=== PATIENT | female | born 1980 | race Caucasian/White ===

== ENCOUNTER 2017-01-05 11:03 | Inpatient (IN) ==
[2017-01-05] MEDS ORDERED: 0.9 % Sodium Chloride 1,000 ML IVC ONE ×3 (11:20→14:01)
[2017-01-05] MEDS ORDERED: Ipratropium/Albuterol Neb 3 ML IH ONE (11:20)
[2017-01-05] MEDS ORDERED: Benzonatate 100 MG CAPSULE PO STA (11:23)
[2017-01-05] MEDS ORDERED: Ondansetron 4 MG/2 ML VIAL IVP ONE (11:59)
[2017-01-05 12:00] LABS: Basophils # 0.1 K/mcL (0.0-0.2); Basophils % 0.7 %; Eosinophils # 0.2 K/mcL (0.0-0.6); Eosinophils % 2.7 %; Hematocrit 42.1 % (35.3-44.9); Hemoglobin 15.4 g/dL (11.5-15.4); Immature Granulocytes % 0.3 % (0-4); Immature Platelets 5.6 % (1.1-6.1); Lymphocytes # 2.6 K/mcL (0.6-4.6); Lymphocytes % 35.9 %; Mean Corpuscular HGB Conc 36.6 g/dL (31.6-35.5); Mean Corpuscular Hemoglobin 28.9 pg (28.0-33.3); Mean Corpuscular Volume 79.1 fL (83.0-100.0); Mean Platelet Volume 10.7 fL (9.4-12.4); Monocytes # 0.3 K/mcL (0.0-1.3); Monocytes % 3.9 %; Platelet Count 342 K/mcL (140-400); Red Blood Count 5.32 M/mcL (3.82-4.97); Red Cell Distribution Width 12.5 % (11.5-14.5); Segmented Neutrophils % 56.5 %
[2017-01-05 12:13] LABS: Calcium 9.3 mg/dL (8.6-10.8); Potassium 3.8 mEq/L (3.5-4.5)
--- NOTE | 2017-01-05 12:16 | Emergency Department Note ---
Disposition Clinical Impression: DKA (diabetic ketoacidoses) Disposition: Admitted As Inpatient Condition: Fair Time of Disposition: 15:27 General Adult HPI - General Chief complaint: ED Upper Respiratory Infection Stated complaint: cough/congestion Time Seen by Provider: 01/05/17 11:09 Source: patient Mode of arrival: ambulatory Limitations: no limitations Nursing Notes Reviewed: Yes Vital Signs Reviewed: Yes - History of Present Illness HPI Narrative: Impression presenting to the ED with shortness breath and chest pain. Patient has had gradually increasing shortness of breath and exertional dyspnea over the last week. Also associated with nausea, fatigue, cough/congestion. Has a history of pneumonia requiring admission and intubation according the patient. States that she does not have a history of asthma or COPD but does smoke and has a nebulizer at home. This has not been helping. States the last day or 2. She has had some substernal chest pain that sharp and pleuritic. Also having increasing exertional dyspnea. No DVT, PE, malignancy history. No exogenous estrogen use, recent travel or surgeries. States she has felt like this previously. SHe has been subjectively febrile at home. Pain Scale: 7 - Related Data Allergies Allergy/AdvReac Type Severity Reaction Status Date / Time No Known Allergies Allergy Verified 01/05/17 11:21 All systems ED: reviewed and negative except as stated. Constitutional: Reports: fever Eyes: Denies: vision change Cardiovascular: Reports: chest pain, dyspnea on exertion, orthopnea Respiratory: Reports: cough, dyspnea Gastrointestinal: Reports: nausea Musculoskeletal: Denies: back pain Neurological: Denies: headache Endocrine: Reports: fatigue Past Medical History - Past Medical History Attestation: Yes The following information was validated with the patient. Source: patient Medical history: Reports: diabetes Psychiatric history: Reports: anxiety, depression - Social History Smoking Status: Current every day smoker Smokeless Tobacco Status: No Alcohol use: Reports: none Drug use: Reports: none Physical Exam - General Limitations: no limitations General appearance: alert, anxious - Head Head exam: atraumatic, normocephalic, normal inspection - Eye Eye exam: Present: normal appearance, PERRL, EOMI - ENT ENT exam: normal exam, normal oropharynx, mucous membranes moist - Neck Neck exam: Present: normal inspection, full ROM, trachea midline - Chest Chest inspection: Present: normal inspection, symmetric chest wall rise - Respiratory Respiratory exam: Present: wheezes. Absent: normal lung sounds bilaterally, respiratory distress, accessory muscle use - Cardiovascular Cardiovascular exam: Present: tachycardia, normal heart sounds - Abdominal Exam Abdominal exam: Present: soft, Non-Tender. Absent: tenderness, distention, guarding, rebound, rigidity - Extremities Exam Extremities exam: Present: normal inspection, full ROM, normal capillary refill. Absent: tenderness, pedal edema - Neurological Exam Neurological exam: Present: alert, oriented X3 - Psychiatric Psychiatric exam: Present: normal affect, normal mood - Skin Skin exam: Present: warm, dry, intact, normal color Course Course Narrative: Pneumonia versus PE. We will check a d-dimer. Labs, cultures, chest x-ray. - Reevaluation(s) Reevaluation #1: Patient hyperglycemic with an anion gap of 13 We ordered serum ketones and a VBG however, after 2 hours lab informed us that the order never popped up on their screening despite us, asking them to draw it. It was ordered again, and 30 minutes later, the labs are still not gone, so asked again for these be ordered and they were ordered. Serum ketones slightly elevated. The VBG did not show overt acidosis, although her CO2 is low. We will admit to the hospitalist service for DKA. Do not think she needs ICU at this time. Glucose is trending down after fluids. Replace her potassium with 40 by mouth and 20 IV. Vital Signs Temperature 98.2 F 01/05/17 11:03 Pulse Rate 114 01/05/17 11:03 Respiratory Rate 22 01/05/17 11:03 Blood Pressure 148/71 01/05/17 11:03 O2 Sat by Pulse Oximetry 97 01/05/17 11:03 Temperature 98.0 F 01/06/17 07:17 Pulse Rate 78 01/06/17 08:37 Respiratory Rate 18 01/06/17 07:17 Blood Pressure 118/76 01/06/17 07:17 O2 Sat by Pulse Oximetry 98 01/06/17 07:24 Oxygen Delivery Oxygen Delivery Room Air Medical Decision Making - Medical Records Medical records reviewed: Yes I reviewed the patient's medical records. - Lab Data Lab results reviewed: Yes I reviewed the patient's lab results. Result diagrams: 01/06/17 03:14 01/06/17 03:14 Lab Results 10/29/17 10/29/17 10/29/17 Range/Units 08:25 11:39 11:39 WBC 7.1 (4.3-11.1) K/mcL RBC 5.32 H (3.82-4.97) M/mcL Hgb 15.4 (11.5-15.4) g/dL Hct 42.1 (35.3-44.9) % MCV 79.1 L (83.0-100.0) fL MCH 28.9 (28.0-33.3) pg MCHC 36.6 H (31.6-35.5) g/dL RDW 12.5 (11.5-14.5) % Plt Count 342 (140-400) K/mcL MPV 10.7 (9.4-12.4) fL Immature Gran % 0.3 (0-4) % Seg Neutrophils % 56.5 % Lymphocytes % 35.9 % Monocytes % 3.9 % Eosinophils % 2.7 % Basophils % 0.7 % Neutrophils # 4.0 (1.6-8.9) K/mcL Lymphocytes # 2.6 (0.6-4.6) K/mcL Monocytes # 0.3 (0.0-1.3) K/mcL Eosinophils # 0.2 (0.0-0.6) K/mcL Basophils # 0.1 (0.0-0.2) K/mcL Immature Plt Fraction 5.6 (1.1-6.1) % D-Dimer 406 (0-500) ng/mLFEU VBG pH (7.32-7.42) pH Units VBG pCO2 (41-51) mmHg VBG pO2 (25-50) mmHg VBG HCO3 (21-27) mEq/L Sodium (136-145) mEq/L Potassium (3.5-4.5) mEq/L Chloride (98-109) mEq/L Carbon Dioxide (19-29) mEq/L BUN (7-20) mg/dL Creatinine (0.57-1.11) mg/dL Est GFR ( Amer) (> 60) Est GFR (Non-Af Amer) (> 60) BUN/Creatinine Ratio (6-26) Glucose (70-99) mg/dL POC Glucose (58-89) Calculated Osmolality (280-300) Lactic Acid (0.5-2.2) mmol/L Calcium (8.6-10.8) mg/dL Troponin I (0-0.03) ng/mL Beta-Hydroxybutyric Acd (0.02-0.27) mmol/L Urine Color (Yellow) Urine Clarity (Clear) Urine pH (5.0-8.0) pH Units Ur Specific [place] (1.010-1.025) Urine Protein (Neg-Trace) mg/dL Urine Glucose (UA) (Normal) mg/dL Urine Ketones (Negative) mg/dL Urine Blood (Negative) Urine Nitrite (Negative) Urine Bilirubin (Negative) Urine Urobilinogen (Normal) mg/dL Ur Leukocyte Esterase (Negative) Urine Microscopic RBC (0-3) per hpf Urine Microscopic WBC (0-3) per hpf Ur Squamous Epith Cells (None-Few) per lpf Urine Bacteria (None-Few) per hpf Ur Culture Indicated? (NO) Specimen Rejected Miscellaneous 01/05/17 01/05/17 01/05/17 Range/Units 11:39 11:39 11:39 WBC (4.3-11.1) K/mcL RBC (3.82-4.97) M/mcL Hgb (11.5-15.4) g/dL Hct (35.3-44.9) % MCV (83.0-100.0) fL MCH (28.0-33.3) pg MCHC (31.6-35.5) g/dL RDW (11.5-14.5) % Plt Count (140-400) K/mcL MPV (9.4-12.4) fL Immature Gran % (0-4) % Seg Neutrophils % % Lymphocytes % % Monocytes % % Eosinophils % % Basophils % % Neutrophils # (1.6-8.9) K/mcL Lymphocytes # (0.6-4.6) K/mcL Monocytes # (0.0-1.3) K/mcL Eosinophils # (0.0-0.6) K/mcL Basophils # (0.0-0.2) K/mcL Immature Plt Fraction (1.1-6.1) % D-Dimer (0-500) ng/mLFEU VBG pH (7.32-7.42) pH Units VBG pCO2 (41-51) mmHg VBG pO2 (25-50) mmHg VBG HCO3 (21-27) mEq/L Sodium 126 L (136-145) mEq/L Potassium 3.8 (3.5-4.5) mEq/L Chloride 98 (98-109) mEq/L Carbon Dioxide 15 L (19-29) mEq/L BUN 9 (7-20) mg/dL Creatinine 1.38 H (0.57-1.11) mg/dL Est GFR ( Amer) 52 L (> 60) Est GFR (Non-Af Amer) 43 L (> 60) BUN/Creatinine Ratio 7 (6-26) Glucose 780 H* (70-99) mg/dL POC Glucose (58-89) Calculated Osmolality 299 (280-300) Lactic Acid 2.8 H (0.5-2.2) mmol/L Calcium 9.3 (8.6-10.8) mg/dL Troponin I 0.00 (0-0.03) ng/mL Beta-Hydroxybutyric Acd (0.02-0.27) mmol/L Urine Color (Yellow) Urine Clarity (Clear) Urine pH (5.0-8.0) pH Units Ur Specific [place] (1.010-1.025) Urine Protein (Neg-Trace) mg/dL Urine Glucose (UA) (Normal) mg/dL Urine Ketones (Negative) mg/dL Urine Blood (Negative) Urine Nitrite (Negative) Urine Bilirubin (Negative) Urine Urobilinogen (Normal) mg/dL Ur Leukocyte Esterase (Negative) Urine Microscopic RBC (0-3) per hpf Urine Microscopic WBC (0-3) per hpf Ur Squamous Epith Cells (None-Few) per lpf Urine Bacteria (None-Few) per hpf Ur Culture Indicated? (NO) Specimen Rejected 01/05/17 01/05/17 01/05/17 Range/Units 13:19 13:21 14:11 WBC (4.3-11.1) K/mcL RBC (3.82-4.97) M/mcL Hgb (11.5-15.4) g/dL Hct (35.3-44.9) % MCV (83.0-100.0) fL MCH (28.0-33.3) pg MCHC (31.6-35.5) g/dL RDW (11.5-14.5) % Plt Count (140-400) K/mcL MPV (9.4-12.4) fL Immature Gran % (0-4) % Seg Neutrophils % % Lymphocytes % % Monocytes % % Eosinophils % % Basophils % % Neutrophils # (1.6-8.9) K/mcL Lymphocytes # (0.6-4.6) K/mcL Monocytes # (0.0-1.3) K/mcL Eosinophils # (0.0-0.6) K/mcL Basophils # (0.0-0.2) K/mcL Immature Plt Fraction (1.1-6.1) % D-Dimer (0-500) ng/mLFEU VBG pH (7.32-7.42) pH Units VBG pCO2 (41-51) mmHg VBG pO2 (25-50) mmHg VBG HCO3 (21-27) mEq/L Sodium (136-145) mEq/L Potassium (3.5-4.5) mEq/L Chloride (98-109) mEq/L Carbon Dioxide (19-29) mEq/L BUN (7-20) mg/dL Creatinine (0.57-1.11) mg/dL Est GFR ( Amer) (> 60) Est GFR (Non-Af Amer) (> 60) BUN/Creatinine Ratio (6-26) Glucose (70-99) mg/dL POC Glucose 550 H* (58-89) Calculated Osmolality (280-300) Lactic Acid 3.0 H (0.5-2.2) mmol/L Calcium (8.6-10.8) mg/dL Troponin I (0-0.03) ng/mL Beta-Hydroxybutyric Acd (0.02-0.27) mmol/L Urine Color Yellow (Yellow) Urine Clarity Cloudy A (Clear) Urine pH 6.5 (5.0-8.0) pH Units Ur Specific [place] > 1.030 H (1.010-1.025) Urine Protein Negative (Neg-Trace) mg/dL Urine Glucose (UA) >=1000 H (Normal) mg/dL Urine Ketones Negative (Negative) mg/dL Urine Blood Negative (Negative) Urine Nitrite Negative (Negative) Urine Bilirubin Negative (Negative) Urine Urobilinogen Normal (Normal) mg/dL Ur Leukocyte Esterase Small H (Negative) Urine Microscopic RBC 0-3 (0-3) per hpf Urine Microscopic WBC 0-3 (0-3) per hpf Ur Squamous Epith Cells Few (None-Few) per lpf Urine Bacteria Few (None-Few) per hpf Ur Culture Indicated? YES A (NO) Specimen Rejected 01/05/17 01/05/17 01/05/17 Range/Units 14:12 14:49 14:59 WBC (4.3-11.1) K/mcL RBC (3.82-4.97) M/mcL Hgb (11.5-15.4) g/dL Hct (35.3-44.9) % MCV (83.0-100.0) fL MCH (28.0-33.3) pg MCHC (31.6-35.5) g/dL RDW (11.5-14.5) % Plt Count (140-400) K/mcL MPV (9.4-12.4) fL Immature Gran % (0-4) % Seg Neutrophils % % Lymphocytes % % Monocytes % % Eosinophils % % Basophils % % Neutrophils # (1.6-8.9) K/mcL Lymphocytes # (0.6-4.6) K/mcL Monocytes # (0.0-1.3) K/mcL Eosinophils # (0.0-0.6) K/mcL Basophils # (0.0-0.2) K/mcL Immature Plt Fraction (1.1-6.1) % D-Dimer (0-500) ng/mLFEU VBG pH 7.45 H (7.32-7.42) pH Units VBG pCO2 16 L (41-51) mmHg VBG pO2 170 H (25-50) mmHg VBG HCO3 11 L (21-27) mEq/L Sodium (136-145) mEq/L Potassium (3.5-4.5) mEq/L Chloride (98-109) mEq/L Carbon Dioxide (19-29) mEq/L BUN (7-20) mg/dL Creatinine (0.57-1.11) mg/dL Est GFR ( Amer) (> 60) Est GFR (Non-Af Amer) (> 60) BUN/Creatinine Ratio (6-26) Glucose (70-99) mg/dL POC Glucose 523 H* (58-89) Calculated Osmolality (280-300) Lactic Acid (0.5-2.2) mmol/L Calcium (8.6-10.8) mg/dL Troponin I (0-0.03) ng/mL Beta-Hydroxybutyric Acd 0.62 H (0.02-0.27) mmol/L Urine Color (Yellow) Urine Clarity (Clear) Urine pH (5.0-8.0) pH Units Ur Specific [place] (1.010-1.025) Urine Protein (Neg-Trace) mg/dL Urine Glucose (UA) (Normal) mg/dL Urine Ketones (Negative) mg/dL Urine Blood (Negative) Urine Nitrite (Negative) Urine Bilirubin (Negative) Urine Urobilinogen (Normal) mg/dL Ur Leukocyte Esterase (Negative) Urine Microscopic RBC (0-3) per hpf Urine Microscopic WBC (0-3) per hpf Ur Squamous Epith Cells (None-Few) per lpf Urine Bacteria (None-Few) per hpf Ur Culture Indicated? (NO) Specimen Rejected 01/05/17 01/05/17 01/05/17 Range/Units 15:24 15:24 17:08 WBC (4.3-11.1) K/mcL RBC (3.82-4.97) M/mcL Hgb (11.5-15.4) g/dL Hct (35.3-44.9) % MCV (83.0-100.0) fL MCH (28.0-33.3) pg MCHC (31.6-35.5) g/dL RDW (11.5-14.5) % Plt Count (140-400) K/mcL MPV (9.4-12.4) fL Immature Gran % (0-4) % Seg Neutrophils % % Lymphocytes % % Monocytes % % Eosinophils % % Basophils % % Neutrophils # (1.6-8.9) K/mcL Lymphocytes # (0.6-4.6) K/mcL Monocytes # (0.0-1.3) K/mcL Eosinophils # (0.0-0.6) K/mcL Basophils # (0.0-0.2) K/mcL Immature Plt Fraction (1.1-6.1) % D-Dimer (0-500) ng/mLFEU VBG pH (7.32-7.42) pH Units VBG pCO2 (41-51) mmHg VBG pO2 (25-50) mmHg VBG HCO3 (21-27) mEq/L Sodium (136-145) mEq/L Potassium (3.5-4.5) mEq/L Chloride (98-109) mEq/L Carbon Dioxide (19-29) mEq/L BUN (7-20) mg/dL Creatinine (0.57-1.11) mg/dL Est GFR ( Amer) (> 60) Est GFR (Non-Af Amer) (> 60) BUN/Creatinine Ratio (6-26) Glucose (70-99) mg/dL POC Glucose 470 H* 476 H* 374 H (58-89) Calculated Osmolality (280-300) Lactic Acid (0.5-2.2) mmol/L Calcium (8.6-10.8) mg/dL Troponin I (0-0.03) ng/mL Beta-Hydroxybutyric Acd (0.02-0.27) mmol/L Urine Color (Yellow) Urine Clarity (Clear) Urine pH (5.0-8.0) pH Units Ur Specific [place] (1.010-1.025) Urine Protein (Neg-Trace) mg/dL Urine Glucose (UA) (Normal) mg/dL Urine Ketones (Negative) mg/dL Urine Blood (Negative) Urine Nitrite (Negative) Urine Bilirubin (Negative) Urine Urobilinogen (Normal) mg/dL Ur Leukocyte Esterase (Negative) Urine Microscopic RBC (0-3) per hpf Urine Microscopic WBC (0-3) per hpf Ur Squamous Epith Cells (None-Few) per lpf Urine Bacteria (None-Few) per hpf Ur Culture Indicated? (NO) Specimen Rejected - Radiology Data Radiology results reviewed: Yes I reviewed the patient's radiology results. Chest X-Ray 01/05/17 11:20 IMPRESSION: No acute cardiopulmonary disease. D/ / Chang Garcia MD / Chang Garcia MD Interpreting Provider: Chang Garcia MD - EKG Data EKG #1 EKG attestation: Yes I reviewed and interpreted this EKG. EKG results narrative: Sinus rhythm, rate 83, para 172, QRS 109, QTC 389, normal axis, no acute ischemic changes. Attestation Statement - Attestation Attestation: I examined this patient and my medical decision-making was reviewed with the Resident Physician, Dr. Gunn. I agree with the documented findings, disposition and treatment plan as described except to the extent set forth below. Patient is a 36-year-old female history of diabetes hypertension hyperlipidemia who presents to the emergency today with complaints of upper respiratory symptoms as well as gradually worsening shortness of breath. She denies any history of COPD or asthma but is on aerosols at home. Patient arrives without respiratory distress and O2 sats are within normal limits on room air. Patient was concerned because over the past few days she feels she has been developing more exertional dyspnea although denies any form of chest pain pressure or heaviness. Patient arrives with a sinus tachycardia but blood pressure stable and she is afebrile. She denies any production of cough, no hemoptysis. Patient does state that her sugars have been running high over the past few days as well. She denies any abdominal pain or cramping, no nausea vomiting, no flank pain or urinary symptoms. I agree with patient's physical exam findings as documented. Patient was tachycardic on arrival but remainder of vital signs are within normal limits. Patient was put on secured entrance monitor and continuous pulse ox IV saline was established and labs were drawn and sent patient underwent a chest x-ray as well as EKG evaluation and extensive laboratory evaluation. Patient's EKG showed a sinus rhythm without any ischemic changes. At the time her EKG was performed heart rate was 83. Patient's chest x-ray was within normal limits no sign of consolidation or cardiomegaly. Patient's lab evaluation shows evidence of DKA with a gap Metabolic acidosis and hyperglycemia. Patient's bicarbonate was 15. Patient was started on IV fluids and ultimately insulin drip. Patient also had an elevated beta hydroxybutyrate. Remainder patient's labs including d-dimer and troponin were within normal limits. At this time patient is receiving IV fluid resuscitation , potassium replacement, insulin drip has been initiated. She will be admitted to the hospitalist service. Case was discussed and they accepted the patient for admission. I do not feel the patient requires critical care management, in terms of an ICU bed. She remained in stable condition with improved vital signs following IV fluid administration and will be transferred to the floor in stable condition.
[2017-01-05 13:29] LABS: Bilirubin,Urine Negative (Negative); Blood,Urine Negative (Negative); Clarity,Urine Cloudy (Clear); Color,Urine Yellow (Yellow); Glucose,Urine (UA) >=1000 mg/dL (Normal); Ketones,Urine Negative (Negative); Leukocyte Esterase,Urine Small (Negative); Nitrite,Urine Negative (Negative); PH,Urine 6.5 pH Units (5.0-8.0); Protein,Urine Negative (Neg-Trace); Specific Gravity,Urine > 1.030 (1.010-1.025); Urobilinogen,Urine Normal (Normal)
[2017-01-05 13:34] LABS: RBC,Urine 0-3 per hpf (0-3); WBC,Urine 0-3 per hpf (0-3)
[2017-01-05 13:35] LABS: Bacteria,Urine Few per hpf (None-Few); Squamous Epithelial Cell,Urine Few per lpf (None-Few)
[2017-01-05] MEDS ORDERED: *HR* Promethazine 25 MG/ML VIAL IVP ONE (13:35)
[2017-01-05] MEDS ORDERED: *HR* Dextrose 50 % in Water (Syg) 50 ML SYRINGE IVP PRN (14:02)
[2017-01-05] MEDS ORDERED: Insulin Human Regular 100 UNIT in 0.9 % Sodium Chloride 100 ML IVC SCH ×3 (14:15→20:49)
[2017-01-05 15:02] LABS: VBG HCO3 11 mEq/L (21-27); VBG PCO2 16 mmHg (41-51); VBG PH 7.45 pH Units (7.32-7.42); VBG PO2 170 mmHg (25-50)
[2017-01-05] MEDS ORDERED: Acetaminophen 325 MG TABLET PO PRN (17:18)
[2017-01-05] MEDS ORDERED: Naloxone 0.4 MG/ML INJ IVP PRN (17:18)
[2017-01-05] MEDS ORDERED: D5% in 0.45% NACL 1,000 ML IVC PRN (17:21)
--- NOTE | 2017-01-05 17:26 | Internal Med History&Physical ---
Date of Encounter: 01/05/17 Time of Encounter: 17:26 Assessment and Plan (1) Diabetes mellitus with nonketotic hyperosmolarity Current visit: Yes Status: Acute She has been experiencing shortness of breath and subjective fevers presented with a blood sugar of 789 With Anion gap 13 She was given IV fluids potassium and insulin gtt. BS down to 476 We will continue with insulin drip recheck lab work Continue nothing by mouth for now Continue with her electrolytes checked per protocol continue with IVF 0.9 NS (2) Tobacco abuse Current visit: Yes Status: Acute Encourage patient to stop smoking nicotine patch (3) Bronchitis Current visit: Yes Status: Acute We will continue with bronchodilators, add Tessalon Perles oxygen as needed We will obtain influenza swab to rule out possible flu (4) DVT prophylaxis Current visit: Yes Status: Acute Heparin subcutanous Internal Medicine - H&P: HPI Chief complaint: SOB Admitted From: Emergency Dept Plans for Post Hospital Care: Home History of present illness: Ms. Walters is a 36 year old female with medical history of type 2 diabetes GERD tobacco use low back pain depression. Patient has beenhaving increasing shortness of breath and exertional dyspnea over the last week. She also has had a nonproductive cough and subjective fevers nausea fatigue no vomiting or diarrhea occasional chest pain during coughing. Denies any history of asthma COPD however she is a smoker and does use nebulizers at home she states has not helped with her cough. She does have a history of pneumonia and states approximately 2 years ago had to be intubated for respiratory failure from pneumonia. Lab work was obtained which did reveal no leukocytosis lactate is elevated 2.8 history she does have an elevated creatinine at 1.3 elevated glucose VBG with no acidosis low Co2 . She was given IV fluids as well as potassium. She has been admitted for further workup and evaluation. Presently the patient does not appear to be in respiratory distress she does have some expiratory wheezes. She denies any chest pain or shortness of breath at this time. She is hemodynamically stable. Reviewed case with Dr. Madden who agrees with plan Past Med Surg Social Fam HX - Past Medical History Medical history: diabetes Psychiatric history: anxiety, depression - Social History Smoking Status: Current every day smoker Smokeless Tobacco Status: No Alcohol use: none Drug use: none - Family History Father Living Status: Still Living Hx Family Cardiac Disorders: Yes (Hypertension) Mother Living Status: Still Living Hx Family Respiratory Disorders: Yes (copd) Internal Medicine - H&P: Meds ALPRAZolam [Xanax 0.5 MG Tablet] 0.5 - 1 mg PO TID PRN 01/05/17 [History] Acetaminophen with Codeine [Acetaminophen-Cod #3 Tablet] 1 tab PO Q6H PRN [History] Albuterol Sulfate [Ventolin Hfa] 1 - 2 puff IH Q6H PRN 01/05/17 [History] DULoxetine [Cymbalta] 30 mg PO BID 01/05/17 [History] Fluticasone/Vilanterol [Breo Ellipta 100-25 Mcg INH] 1 puff IH DAILY 01/05/17 [ History] Furosemide [Lasix] 20 mg PO DAILY 01/05/17 [History] Insulin ASPART [Novolog Flexpen] 20 - 35 unit SQ TIDWM 01/05/17 [History] Insulin Degludec [Tresiba Flextouch U-200] 140 unit SQ DAILY 01/05/17 [History] Omeprazole [PriLOSEC] 20 mg PO DAILY 01/05/17 [History] Pregabalin [Lyrica] 100 mg PO BID 01/05/17 [History] 3 Allergy/AdvReac Type Severity Reaction Status Date / Time No Known Allergies Allergy Verified 01/05/17 11:21 All Systems PM: A 10-system review of systems was performed and is negative for pertinent findings except as documented above in the HPI. - Constitutional Constitutional: fatigue, fever(s), no chills, no night sweats - EENT Eyes: no change in vision, no discharge, no pain, no photophobia Nose, mouth and throat: no dysphagia, no nasal discharge, no neck pain, no sore throat - Cardiovascular Cardiovascular ROS IM: chest pain, dyspnea on exertion, no diaphoresis, no dyspnea, no lightheadedness, no palpitations, no syncope - Respiratory Respiratory: cough - Gastrointestinal Gastrointestinal: no abdominal pain, no diarrhea, no hematemesis, no hematochezia, no melena, no nausea, no vomiting - Genitourinary Genitourinary: no change in urinary stream, no dysuria, no flank pain, no hematuria - Musculoskeletal Musculoskeletal ROS IM: no numbness, no tingling - Integumentary Integumentary IM: no rash, no unusual bruising - Neurological Neurological ROS: no confusion, no convulsions, no focal weakness, no numbness, no tingling, no tremor(s) - Hematologic/Lymphatic Hematologic/Lymphatic: no easy bruising - Constitutional Vitals: Temp Pulse Resp BP Pulse Ox 98.2 F 88 18 115/76 100 01/05/17 11:03 01/05/17 15:30 01/05/17 15:30 01/05/17 15:30 01/05/17 15:30 General appearance: Present: A&O X 3, answers questions appropriately - Head Head exam: Present: atraumatic, normocephalic - Eye Eye exam: Present: PERRL, conjuntiva pink, sclera anicteric Pupils: Present: PERRL - Neck Neck exam general surgery: Present: supple, trachea midline. Absent: lymphadenopathy - Respiratory Respiratory exam: Present: wheezes. Absent: accessory muscle use, rales, rhonchi - Cardiovascular Cardiovascular exam: Present: RRR, +S1, +S2. Absent: diastolic murmur, gallop, rubs, systolic murmur - GI/Abdominal GI/Abdominal exam: Present: normal bowel sounds, soft, no peritoneal signs. Absent: distended, tenderness - Extremities Exam Extremities exam: Present: warm, radial pulses palpable and symmetrical. Absent : calf tenderness, cyanotic, pedal edema - Neurological Exam Neurological exam: Present: CN II-XII intact, oriented X3, no focal deficits. Absent: pronater drift, facial droop, speech deficit - Skin Skin exam: Present: dry, intact Internal Med - H&P Results - Labs CBC & Chem 7: 01/05/17 11:39 01/05/17 11:39 Labs: Short CBC 01/05/17 Range/Units 11:39 WBC 7.1 (4.3-11.1) K/mcL Hgb 15.4 (11.5-15.4) g/dL Hct 42.1 (35.3-44.9) % Plt Count 342 (140-400) K/mcL Neutrophils # 4.0 (1.6-8.9) K/mcL BMP 01/05/17 11:39 Sodium 126 L Potassium 3.8 Chloride 98 Carbon Dioxide 15 L BUN 9 Creatinine 1.38 H Glucose 780 H* Calcium 9.3 Cardiac Enzymes 01/05/17 Range/Units 11:39 Troponin I 0.00 (0-0.03) ng/mL Urine 01/05/17 Range/Units 13:21 Urine Color Yellow (Yellow) Urine Clarity Cloudy A (Clear) Urine pH 6.5 (5.0-8.0) pH Units Ur Specific [place] > 1.030 H (1.010-1.025) Urine Protein Negative (Neg-Trace) mg/dL Urine Glucose (UA) >=1000 H (Normal) mg/dL - ABG Interpretation ABG results: 01/05/17 14:59 VBG pH 7.45 H VBG pCO2 16 L VBG pO2 170 H VBG HCO3 11 L Interpretation: respiratory alkalosis - EKG Data EKG shows normal: sinus rhythm - Impressions ITS Impressions Chest X-Ray 01/05/17 11:20 IMPRESSION: No acute cardiopulmonary disease. D/ / Chang Garcia MD / Chang Garcia MD Interpreting Provider: Chang Garcia MD - Diagnostic Studies Other Images Additional comments: Chest X-Ray 01/05/17 11:20
[2017-01-05] MEDS ORDERED: Albuterol 2.5 MG/3 ML NEBULIZER IH PRN (17:27)
[2017-01-05] MEDS ORDERED: Calcium Gluconate 1,000 MG in D5% in Water 100 ML IVPB PRN (18:48)
[2017-01-05] MEDS ORDERED: Magnesium Sulfate 2 GM in D5% in Water 100 ML IVPB PRN (18:48)
[2017-01-05] MEDS ORDERED: Insulin Regular, Human 100 UNIT/ML IV PRN (18:59)
[2017-01-05] MEDS ORDERED: D5% in 0.45% NACL w KCl 20 MEQ/1,000 ML MLS IVC PRN (18:59)
[2017-01-05] MEDS: *HR* Heparin 5,000 UNIT/ML VIAL SQ SCH (20:02)
[2017-01-05] MEDS: Nicotine 14 MG PATCH.TD24 TD SCH (20:02)
[2017-01-05] MEDS ORDERED: Benzonatate 100 MG CAPSULE PO PRN (20:10)
[2017-01-05] MEDS ORDERED: 0.9 % Sodium Chloride 1,000 ML IVC SCH (20:15)
[2017-01-05 20:20] LABS: BUN/Creatinine Ratio 8 (6-26); Blood Urea Nitrogen 7 mg/dL (7-20); Calcium 8.9 mg/dL (8.6-10.8); Carbon Dioxide 19 mEq/L (19-29); Chloride 110 mEq/L (98-109); Glucose 193 mg/dL (70-99); Osmolality,Calculated 289 (280-300); Potassium 3.6 mEq/L (3.5-4.5); eGFR For African Americans > 60 (> 60); eGFR For Non-African Americans > 60 (> 60)
[2017-01-05 20:21] LABS: Magnesium 1.9 mg/dL (1.6-2.6)
[2017-01-05 20:24] LABS: Sodium 138 mEq/L (136-145)
[2017-01-05] MEDS ORDERED: Potassium Chloride 20 MEQ, Lidocaine 1% 2 ML in D5% in Water 250 ML IVPB ONE (20:51)
[2017-01-05] MEDS: Pregabalin 50 MG CAPSULE PO SCH (21:34)
[2017-01-05] MEDS: D5% in 0.9% NACL 1,000 ML IVC SCH (21:36)
--- NOTE | 2017-01-05 21:53 | Event Note ---
Date of Encounter: 01/05/17 Time of Encounter: 21:52 Patient seen and examined with nurse practitioner. Hyperglycemic hyperosmolar state, Partly due to insulin noncompliance and acute bronchitis. Patient knowledge is unable to tolerate food as of now so will continue maria victoria insulin drip currently 2 units in our hydrate. Once the patient is able to tolerate PO diet, will start long-acting and insulin.
[2017-01-05] MEDS: ALPRAZolam 0.5 MG TABLET PO PRN (22:14)
[2017-01-05] MEDS: *HR* Acetaminophen w/Cod 300-30 mg 1 TAB TABLET PO PRN (22:14)
[2017-01-05] MEDS: Ipratropium/Albuterol Neb 3 ML IH SCH (23:21)
[2017-01-05] MEDS ORDERED: Insulin DETEMIR 100 UNIT/ML X5UNITS SQ ONE (23:51)
[2017-01-06 01:08] LABS: Blood Urea Nitrogen 11 mg/dL (7-20); Carbon Dioxide 16 mEq/L (19-29); Chloride 111 mEq/L (98-109); Sodium 136 mEq/L (136-145)
[2017-01-06 01:09] LABS: BUN/Creatinine Ratio 14 (6-26); Calcium 8.4 mg/dL (8.6-10.8); Glucose 179 mg/dL (70-99); Osmolality,Calculated 286 (280-300); eGFR For African Americans > 60 (> 60); eGFR For Non-African Americans > 60 (> 60)
[2017-01-06] MEDS: Insulin LISPRO 300 UNITS/3 ML VIAL SQ SCH ×5 (01:09→17:04)
[2017-01-06 01:10] LABS: Potassium 3.7 mEq/L (3.5-4.5)
[2017-01-06 01:40] LABS: Beta-Hydroxybutyric Acid 0.19 mmol/L (0.02-0.27)
[2017-01-06] MEDS: Ipratropium/Albuterol Neb 3 ML IH SCH ×8 (03:10→22:00)
[2017-01-06] MEDS: *HR* Heparin 5,000 UNIT/ML VIAL SQ SCH ×2 (03:40→17:05)
[2017-01-06] MEDS: Ondansetron 4 MG/2 ML VIAL IVP PRN ×3 (03:40→21:50)
[2017-01-06] MEDS: *HR* Acetaminophen w/Cod 300-30 mg 1 TAB TABLET PO PRN ×3 (03:41→21:50)
[2017-01-06 03:45] LABS: Basophils % 0.4 %; Eosinophils # 0.2 K/mcL (0.0-0.6); Eosinophils % 2.6 %; Hematocrit 35.1 % (35.3-44.9); Hemoglobin 12.5 g/dL (11.5-15.4); Immature Granulocytes % 0.1 % (0-4); Lymphocytes # 3.6 K/mcL (0.6-4.6); Lymphocytes % 43.1 %; Mean Corpuscular HGB Conc 35.6 g/dL (31.6-35.5); Mean Corpuscular Hemoglobin 29.1 pg (28.0-33.3); Mean Corpuscular Volume 81.6 fL (83.0-100.0); Mean Platelet Volume 10.4 fL (9.4-12.4); Monocytes # 0.3 K/mcL (0.0-1.3); Monocytes % 4.1 %; Neutrophils # 4.1 K/mcL (1.6-8.9); Platelet Count 262 K/mcL (140-400); Red Cell Distribution Width 12.8 % (11.5-14.5); Segmented Neutrophils % 49.7 %
[2017-01-06 04:00] LABS: BUN/Creatinine Ratio 11 (6-26); Blood Urea Nitrogen 9 mg/dL (7-20); Calcium 8.3 mg/dL (8.6-10.8); Carbon Dioxide 17 mEq/L (19-29); Chloride 113 mEq/L (98-109); Glucose 298 mg/dL (70-99); Magnesium 1.7 mg/dL (1.6-2.6); Osmolality,Calculated 292 (280-300); Potassium 4.1 mEq/L (3.5-4.5); Sodium 136 mEq/L (136-145); eGFR For African Americans > 60 (> 60); eGFR For Non-African Americans > 60 (> 60)
[2017-01-06] MEDS: D5% in 0.9% NACL 1,000 ML IVC SCH ×2 (05:21→11:13)
[2017-01-06] MEDS: ALPRAZolam 0.5 MG TABLET PO PRN ×2 (08:25→21:50)
[2017-01-06] MEDS: Pregabalin 50 MG CAPSULE PO SCH ×2 (08:25→19:46)
[2017-01-06] MEDS: Nicotine 14 MG PATCH.TD24 TD SCH (08:25)
[2017-01-06] MEDS: Pantoprazole 40 MG VIAL IVP SCH (08:26)
--- NOTE | 2017-01-06 09:47 | Internal Med Progress Note ---
<Alex Velarde - Last Filed: 01/06/17 14:55> Date of Encounter: 01/06/17 Time of Encounter: 09:44 - Assessment and plan (1) Uncontrolled diabetes mellitus Current Visit: Yes Status: Acute Assessment and plan: markedly elevated serum glucose on admission with positive serum ketones; negative hyperosmo/acidemia on high dose home basal insulin regimen and is routinely non-compliant with FSBG checks as well as prandial insulin glucoses trending toward better control on IP basis; will start on basal insulin 24U hs & medium dose SSI with daily titration as needed start diabetic diet A1C pending discharge likely within 1-2 days Qualifiers: Diabetes mellitus type: type 2 Qualified Code(s): E11.65 - Type 2 diabetes mellitus with hyperglycemia (2) Tobacco abuse Current Visit: Yes Status: Acute Assessment and plan: 20+ pack year history counseled smoking cessation continue nicotine patch (3) Bronchitis Current Visit: Yes Status: Acute Assessment and plan: saturating well on room air no respiratory distress or enhanced effort; conversational without speech interruption. Wheezes heard throughout duonebs q6h scheduled O2 via NC as needed (4) DVT prophylaxis Current Visit: No Status: Acute Assessment and plan: cont subQ heparin - Time Spent With Patient less than 15 minutes - Subjective Interval history: Models normal and stable; saturating well on room air. FSBG continues to be moderately elevated. Insulin drip has been discontinued; patient is on basal insulin as well as SSI. No overnight events per nursing. Patient stated subjectively feels better; is not having any shortness of air, nausea, vomiting , abdominal pain, or any other ongoing symptoms at this time. Per discussion with patient, she has about 20 pack-year smoking history and insulin-dependent diabetes that she admits is poorly controlled. Patient does have a high basal insulin (Tresiba 140U qhs) which she takes consistently, but does not eat regularly nor take prandial insulins on a regular basis; furthermore, she states that she frequently avoids her daytime insulin because she is too busy to check her FSBG, eat, or take additional insulin doses. - Constitutional Vitals: Temp Pulse Resp BP Pulse Ox 98.0 F 78 18 118/76 98 01/06/17 07:17 01/06/17 08:37 01/06/17 07:17 01/06/17 07:17 01/06/17 07:24 General appearance: Present: A&O X 3, pleasant, no acute distress, answers questions appropriately - Head Head exam: Present: atraumatic, normocephalic - Eye Eye exam: Present: PERRL, conjuntiva pink, sclera anicteric. Absent: conjunctival injection - Neck Neck exam general surgery: Present: supple, trachea midline - Respiratory Respiratory exam: Present: CTAB, wheezes (Mild inspiratory and expiratory wheezes heard throughout). Absent: accessory muscle use, rales, respiratory distress, rhonchi Additional comments: Saturating above 96 on room air; is able to speak full sentences without any interruptions or worsening shortness of air. No enhanced respiratory effort or distress at this time. - Cardiovascular Cardiovascular exam: Present: distant heart sounds, RRR, +S1, +S2. Absent: bradycardia, diastolic murmur, gallop, JVD, rubs, +S3, +S4, systolic murmur, tachycardia - GI/Abdominal GI/Abdominal exam: Present: soft. Absent: distended, tenderness - Extremities Exam Extremities exam: Present: warm, radial pulses palpable and symmetrical. Absent : calf tenderness, cyanotic, pedal edema - Neurological Exam Neurological exam: Present: oriented X3, no focal deficits (Moves all extremities readily without any gross focal motor deficits). Absent: facial droop, speech deficit - Skin Skin exam: Present: dry, intact. Absent: cyanosis, diaphoretic, mottled, pallor Internal Medicine: Result - Labs CBC & Chem 7: 01/06/17 03:14 01/06/17 03:14 Labs: Short CBC 01/06/17 Range/Units 03:14 WBC 8.3 (4.3-11.1) K/mcL Hgb 12.5 D (11.5-15.4) g/dL Hct 35.1 L (35.3-44.9) % Plt Count 262 (140-400) K/mcL Neutrophils # 4.1 (1.6-8.9) K/mcL BMP 01/05/17 01/06/17 01/06/17 19:57 00:16 03:14 Sodium 138 D 136 136 Potassium 3.6 3.7 4.1 Chloride 110 H 111 H 113 H Carbon Dioxide 19 16 L 17 L BUN 7 11 9 Creatinine 0.87 0.78 0.80 Glucose 193 H 179 H 298 H Calcium 8.9 8.4 L 8.3 L Laboratory Last Values WBC 8.3 K/mcL (4.3-11.1) 01/06/17 03:14 RBC 4.30 M/mcL (3.82-4.97) 01/06/17 03:14 Hgb 12.5 g/dL (11.5-15.4) D 01/06/17 03:14 Hct 35.1 % (35.3-44.9) L 01/06/17 03:14 MCV 81.6 fL (83.0-100.0) L 01/06/17 03:14 MCH 29.1 pg (28.0-33.3) 01/06/17 03:14 MCHC 35.6 g/dL (31.6-35.5) H 01/06/17 03:14 RDW 12.8 % (11.5-14.5) 01/06/17 03:14 Plt Count 262 K/mcL (140-400) 01/06/17 03:14 MPV 10.4 fL (9.4-12.4) 01/06/17 03:14 Immature Gran % 0.1 % (0-4) 01/06/17 03:14 Seg Neutrophils % 49.7 % 01/06/17 03:14 Lymphocytes % 43.1 % 01/06/17 03:14 Monocytes % 4.1 % 01/06/17 03:14 Eosinophils % 2.6 % 01/06/17 03:14 Basophils % 0.4 % 01/06/17 03:14 Neutrophils # 4.1 K/mcL (1.6-8.9) 01/06/17 03:14 Lymphocytes # 3.6 K/mcL (0.6-4.6) 01/06/17 03:14 Monocytes # 0.3 K/mcL (0.0-1.3) 01/06/17 03:14 Eosinophils # 0.2 K/mcL (0.0-0.6) 01/06/17 03:14 Basophils # 0.0 K/mcL (0.0-0.2) 01/06/17 03:14 Immature Plt Fraction 5.6 % (1.1-6.1) 01/05/17 11:39 D-Dimer 406 ng/mLFEU (0-500) 01/05/17 11:39 VBG pH 7.45 pH Units (7.32-7.42) H 01/05/17 14:59 VBG pCO2 16 mmHg (41-51) L 01/05/17 14:59 VBG pO2 170 mmHg (25-50) H 01/05/17 14:59 VBG HCO3 11 mEq/L (21-27) L 01/05/17 14:59 Sodium 136 mEq/L (136-145) 01/06/17 03:14 Potassium 4.1 mEq/L (3.5-4.5) 01/06/17 03:14 Chloride 113 mEq/L (98-109) H 01/06/17 03:14 Carbon Dioxide 17 mEq/L (19-29) L 01/06/17 03:14 BUN 9 mg/dL (7-20) 01/06/17 03:14 Creatinine 0.80 mg/dL (0.57-1.11) 01/06/17 03:14 Est GFR ( Amer) > 60 (> 60) 01/06/17 03:14 Est GFR (Non-Af Amer) > 60 (> 60) 01/06/17 03:14 BUN/Creatinine Ratio 11 (6-26) 01/06/17 03:14 Glucose 298 mg/dL (70-99) H 01/06/17 03:14 POC Glucose 272 (58-89) H 01/06/17 03:24 Calculated Osmolality 292 (280-300) 01/06/17 03:14 Lactic Acid 3.0 mmol/L (0.5-2.2) H 01/05/17 13:19 Calcium 8.3 mg/dL (8.6-10.8) L 01/06/17 03:14 Phosphorus 2.0 mg/dL (2.3-4.7) L 01/05/17 19:57 Magnesium 1.7 mg/dL (1.6-2.6) 01/06/17 03:14 Troponin I 0.00 ng/mL (0-0.03) 01/05/17 11:39 Beta-Hydroxybutyric Acd 0.19 mmol/L (0.02-0.27) 01/06/17 00:16 Urine Color Yellow (Yellow) 01/05/17 13:21 Urine Clarity Cloudy (Clear) A 01/05/17 13:21 Urine pH 6.5 pH Units (5.0-8.0) 01/05/17 13:21 Ur Specific [place] > 1.030 (1.010-1.025) H 01/05/17 13:21 Urine Protein Negative mg/dL (Neg-Trace) 01/05/17 13:21 Urine Glucose (UA) >=1000 mg/dL (Normal) H 01/05/17 13:21 Urine Ketones Negative mg/dL (Negative) 01/05/17 13:21 Urine Blood Negative (Negative) 01/05/17 13:21 Urine Nitrite Negative (Negative) 01/05/17 13:21 Urine Bilirubin Negative (Negative) 01/05/17 13:21 Urine Urobilinogen Normal mg/dL (Normal) 01/05/17 13:21 Ur Leukocyte Esterase Small (Negative) H 01/05/17 13:21 Urine Microscopic RBC 0-3 per hpf (0-3) 01/05/17 13:21 Urine Microscopic WBC 0-3 per hpf (0-3) 01/05/17 13:21 Ur Squamous Epith Cells Few per lpf (None-Few) 01/05/17 13:21 Urine Bacteria Few per hpf (None-Few) 01/05/17 13:21 Ur Culture Indicated? YES (NO) A 01/05/17 13:21 Specimen Rejected Miscellaneous 01/05/17 08:25 - ABG Interpretation ABG results: PT/INR, D-dimer D-Dimer 406 ng/mLFEU (0-500) 01/05/17 11:39 Consult Discharge Plan - Plan Referrals: Brandee Joiner, CLERICAL OFFICE [Primary Care Provider] - (SENT WEB REQUEST ON 01-06-17 @ 8003) <Conor-Scottie Justice - Last Filed: 01/06/17 16:04> Date of Encounter: 01/06/17 - Constitutional Vitals: Temp Pulse Resp BP Pulse Ox 98.2 F 74 18 110/71 97 01/06/17 11:15 01/06/17 11:15 01/06/17 15:30 01/06/17 11:15 01/06/17 15:30 Internal Medicine: Result - Labs CBC & Chem 7: 01/06/17 03:14 01/06/17 03:14 Labs: Short CBC 01/06/17 Range/Units 03:14 WBC 8.3 (4.3-11.1) K/mcL Hgb 12.5 D (11.5-15.4) g/dL Hct 35.1 L (35.3-44.9) % Plt Count 262 (140-400) K/mcL Neutrophils # 4.1 (1.6-8.9) K/mcL BMP 01/05/17 01/06/17 01/06/17 19:57 00:16 03:14 Sodium 138 D 136 136 Potassium 3.6 3.7 4.1 Chloride 110 H 111 H 113 H Carbon Dioxide 19 16 L 17 L BUN 7 11 9 Creatinine 0.87 0.78 0.80 Glucose 193 H 179 H 298 H Calcium 8.9 8.4 L 8.3 L - ABG Interpretation ABG results: PT/INR, D-dimer D-Dimer 406 ng/mLFEU (0-500) 01/05/17 11:39 - Attending Attestation I examined this patient and my medical decision-making was reviewed with the Resident Physician. I agree with the documented findings, disposition and treatment plan as described except to the extent set forth below. I have seen and examined the patient. Patient is a 36-year-old female with past medical history of diabetes, anxiety, depression and history of tobacco abuse. Patient presented with shortness of breath and hyperglycemia. IV insulin has now been discontinued. Her electrolytes have now been corrected. She has been counseled about smoking cessation. She is on DuoNeb breathing treatment for probable acute bronchitis. She is now on insulin sliding scale. Patient states she has not been increasing her insulin at home. She has been explained about her condition and plan of care in detail. She understood and agreed. Heart rate 93, blood pressure 110/70, O2 sat 98% on room air. Heart S1-S2 positive. Lungs bilateral good entry mild wheezing bilaterally. Abdomen soft nontender no masses or guarding. Extremities all pulses strong regular no edema.
[2017-01-06] MEDS ORDERED: Dextrose Gel 15 GM PO PRN ×2 (09:59)
[2017-01-06] MEDS ORDERED: D5% in Water 1,000 ML IVC PRN (09:59)
[2017-01-06] MEDS ORDERED: VILANTEROL IH SCH (10:00)
[2017-01-06] MEDS ORDERED: FLUTICASONE IH SCH (10:00)
[2017-01-06 19:50] LABS: BUN/Creatinine Ratio 8 (6-26); Blood Urea Nitrogen 7 mg/dL (7-20); Calcium 8.8 mg/dL (8.6-10.8); Carbon Dioxide 13 mEq/L (19-29); Chloride 113 mEq/L (98-109); Glucose 285 mg/dL (70-99); Osmolality,Calculated 290 (280-300); Potassium 3.9 mEq/L (3.5-4.5); eGFR For African Americans > 60 (> 60); eGFR For Non-African Americans > 60 (> 60)
[2017-01-06 19:51] LABS: Sodium 136 mEq/L (136-145)
[2017-01-06] MEDS ORDERED: Insulin DETEMIR 100 UNIT/ML X5UNITS SQ SCH (21:00)
[2017-01-06] MEDS ORDERED: Insulin LISPRO 300 UNITS/3 ML VIAL SQ SCH (21:00)
[2017-01-06] MEDS: Budesonide/Formoterol 160/4.5 MDI IH SCH (21:57)
[2017-01-07] MEDS: Ipratropium/Albuterol Neb 3 ML IH SCH ×4 (04:39→10:02)
[2017-01-07] MEDS: *HR* Heparin 5,000 UNIT/ML VIAL SQ SCH (05:12)
[2017-01-07] MEDS: *HR* Acetaminophen w/Cod 300-30 mg 1 TAB TABLET PO PRN ×2 (05:18→11:49)
[2017-01-07 06:20] LABS: Magnesium 1.6 mg/dL (1.6-2.6)
[2017-01-07 06:21] LABS: Phosphorous 3.1 mg/dL (2.3-4.7)
[2017-01-07] MEDS: Nicotine 14 MG PATCH.TD24 TD SCH (08:02)
[2017-01-07] MEDS: Pregabalin 50 MG CAPSULE PO SCH (08:02)
[2017-01-07] MEDS: ALPRAZolam 0.5 MG TABLET PO PRN (08:02)
[2017-01-07] MEDS: Insulin LISPRO 300 UNITS/3 ML VIAL SQ SCH ×2 (08:03→11:38)
--- NOTE | 2017-01-07 08:46 | Internal Med Progress Note ---
Date of Encounter: 01/07/17 Time of Encounter: 08:44 - Assessment and plan (1) Uncontrolled diabetes mellitus Current Visit: Yes Status: Acute Qualifiers: Diabetes mellitus type: type 2 Qualified Code(s): E11.65 - Type 2 diabetes mellitus with hyperglycemia (2) Tobacco abuse Current Visit: Yes Status: Acute (3) Bronchitis Current Visit: Yes Status: Acute (4) DVT prophylaxis Current Visit: No Status: Acute - Subjective Interval history: Models normal and stable; saturating well on room air. FSBG continues to be moderately elevated. Insulin drip has been discontinued; patient is on basal insulin as well as SSI. No overnight events per nursing. Patient stated subjectively feels better; is not having any shortness of air, nausea, vomiting , abdominal pain, or any other ongoing symptoms at this time. Per discussion with patient, she has about 20 pack-year smoking history and insulin-dependent diabetes that she admits is poorly controlled. Patient does have a high basal insulin (Tresiba 140U qhs) which she takes consistently, but does not eat regularly nor take prandial insulins on a regular basis; furthermore, she states that she frequently avoids her daytime insulin because she is too busy to check her FSBG, eat, or take additional insulin doses. Uneventful course overnight. Vital signs stable. Blood glucose is still persists up to the 300s. And labs ordered impending including a 1C and basic. Patient has no acute complaints at this time and is eager for discharge. Requested patient be visited by ems educator. Also discussed patient with primary care physician. The patient is medically stable and safe for discharge at this time; will prescribe outpatient PO anti-hyperglycemics including Januvia and glipizide. - Constitutional Vitals: Temp Pulse Resp BP Pulse Ox 98.1 F 72 18 111/67 98 01/07/17 03:22 01/07/17 03:22 01/07/17 03:22 01/07/17 03:22 01/07/17 03:22 General appearance: Present: A&O X 3, pleasant, no acute distress, answers questions appropriately Internal Medicine: Result - Labs CBC & Chem 7: 01/06/17 03:14 01/06/17 18:40 Labs: BMP 01/06/17 18:40 Sodium 136 Potassium 3.9 Chloride 113 H Carbon Dioxide 13 L BUN 7 Creatinine 0.84 Glucose 285 H Calcium 8.8 - ABG Interpretation ABG results: PT/INR, D-dimer D-Dimer 406 ng/mLFEU (0-500) 01/05/17 11:39 Consult Discharge Plan - Plan Referrals: Brandee Joiner CNP [Primary Care Provider] - 01/13/17 1:15 pm ()
[2017-01-07] MEDS ORDERED: *HR* SitaGLIPtin 25 MG TABLET PO SCH (09:00)
[2017-01-07] MEDS: Pantoprazole 40 MG VIAL IVP SCH (09:48)
[2017-01-07] MEDS: Budesonide/Formoterol 160/4.5 MDI IH SCH (10:02)
[2017-01-07 10:08] LABS: Hemoglobin A1C 12.4 %
--- NOTE | 2017-01-07 10:11 | Discharge Summary ---
<Alex Velarde - Last Filed: 01/07/17 10:00> Date of Encounter: 01/07/17 Time of Encounter: 09:30 - Discharge Diagnosis (1) Uncontrolled diabetes mellitus Priority: Primary Status: Acute Comments: Patient initially admitted with marked hyperglycemia (780) as well as ketosis; did not formally meet criteria for DKA or HHS. On Tresiba & Novolog at home; inconsistently used per patient. Blood glucose levels have steadily improved over hospital course, but persistently continue to be in the 300 range. Patient does elaborate that social demands and financial factors are limiting to her ability to administer insulin as prescribed by her primary care provider. Consulted social work for further direction regarding resources for ongoing care of diabetes. Qualifiers: Diabetes mellitus type: type 2 Diabetes mellitus complication status: with hyperglycemia Diabetes mellitus shelter insulin use: with shelter use Qualified Code(s): E11.65 - Type 2 diabetes mellitus with hyperglycemia; Z79.4 - group home (current) use of insulin; Z79.4 - long term care pharmacist (current) use of insulin ; Z79.4 - long term care pharmacist (current) use of insulin; Z79.4 - long term care pharmacist (current) use of insulin (2) Tobacco abuse Priority: Secondary Status: Acute Comments: Repeatedly counseled smoking cessation patient states she is not having any cravings for cigarettes during inpatient stay as she is on a nicotine patch social factors at home limit her ability to cease smoking including other smokers in her direct vicinity will discharge with prescription for nicotine patch in hopes that this will further aid patients attempt to quit smoking (3) Bronchitis Priority: Secondary Status: Acute Comments: Saturated well on ambient air at this time Afebrile without any ongoing leukocytosis subjectively improved without any dyspnea (4) DVT prophylaxis Priority: Secondary Status: Acute Comments: Control during stay with subcutaneous heparin - Discharge Medications Prescriptions: glipiZIDE [Glucotrol] 5 mg PO BIDWM #60 tablet Nicotine Patch [Nicoderm] 14 mg TD DAILY #30 patch.td24 SitaGLIPtin [Januvia] 50 mg PO DAILY 30 Days tablet Home Medications: Acetaminophen with Codeine [Acetaminophen-Cod #3 Tablet] 1 tab PO Q6H PRN [History] Albuterol Sulfate [Ventolin Hfa] 1 - 2 puff IH Q6H PRN 01/05/17 [History] DULoxetine [Cymbalta] 30 mg PO BID 10/29/17 [History] Fluticasone/Vilanterol [Breo Ellipta 100-25 Mcg INH] 1 puff IH DAILY 01/05/17 [ History] Furosemide [Lasix] 20 mg PO DAILY 01/05/17 [History] Insulin ASPART [Novolog Flexpen] 20 - 35 unit SQ TIDWM 01/05/17 [History] Insulin Degludec [Tresiba Flextouch U-200] 140 unit SQ DAILY 01/05/17 [History] Omeprazole [PriLOSEC] 20 mg PO DAILY 01/05/17 [History] Pregabalin [Lyrica] 100 mg PO BID 01/05/17 [History] ALPRAZolam [Xanax 0.5 MG Tablet] 0.5 mg PO TID PRN #0 01/07/17 [Rx] Nicotine Patch [Nicoderm] 14 mg TD DAILY #30 patch.td24 01/07/17 [Rx] SitaGLIPtin [Januvia] 50 mg PO DAILY 30 Days tablet 01/07/17 [Rx] glipiZIDE [Glucotrol] 5 mg PO BIDWM #60 tablet 01/07/17 [Rx] Allergies/Adverse Reactions: 3 Allergy/AdvReac Type Severity Reaction Status Date / Time No Known Allergies Allergy Verified 01/05/17 11:21 Date of admission: 01/05/17 17:35 Primary care physician: Brandee Joiner CNP Consults: 01/07/17 08:01 Consult to Manager Sales Support [CONS] Routine Comment: Reason for Consult: patient on Tresiba and Novolog; patient admittedly non- compliant with MT insulin. 01/07/17 09:38 Consult to Manager Statistical Programming [CONS] Routine Reason for SW Consult: No insurance.. Need some information on resources to get free medication Consult to Manager Statistical Programming [CONS] Routine Reason for SW Consult: Uncontrolled DM-II being discharged this afternoon; no medical insurance and needs insulin/resources. Discharging clinician: Alex Velarde Anticipated date of discharge: 01/07/17 - Patient Status Disposition: Home, Self-Care Condition: Good Functional capacity at discharge: independent ambulation Overall status at discharge: patient is back to baseline - Discharge Instructions Instructions: Glipizide (By mouth), Influenza Virus Vaccine (Injection), Nicotine (Absorbed through the skin), Sitagliptin (By mouth), Diabetes Mellitus Type 2 in Adults (DC) Follow Up With: Brandee Joiner CNP [Primary Care Provider] - 01/13/17 1:15 pm () Additional Instructions: Follow-up with your primary care provider within 1-2 weeks please adhere to your diabetic regimen including routine glucometer checks, new oral medications, Tresiba, and Novolog -- take glipizide 5mg by mouth twice daily; take Januvia 25mg by mouth once daily we have discussed importance of limiting carbs for better control of your diabetes you are prescribed nicotine patches; I encourage you to continue your efforts to quit smoking - Diet and Activity Activity: resume usual activities as tolerated Diet: diabetic diet Interval History: Uneventful course overnight. Vital signs stable. Blood glucose is still persists up to the 300s. And labs ordered/pending including A1C and BMP. Patient has no acute complaints at this time and is eager for discharge. On further discussion with patient, financial factors are apparently limiting to patient's ongoing management of her diabetes; currently without any medical insurance and is almost out of her short acting and long-acting insulin. Social work consult it for financial limitations to ongoing outpatient care. The patient is medically stable and safe for discharge at this time; will prescribe outpatient PO anti-hyperglycemics including Januvia and glipizide. Hospital course: Ms. Walters is a 36 year old female who was initially admitted for increasing shortness of area as well as market elevation of blood sugar. No history includes type II diabetes on significant dose Tresiba and NovoLog. Initial blood glucose on presentation to ED was 780 and patient also had some ketosis at that time with in fact slightly elevated VBG pH. Patient admitted on insulin drip which has since been discontinued. Blood sugars significantly improved over hospital course yet linger around 300. Overall, patient stabilized and symptomatically improved without further ongoing subjective complaints. On discussion, it became apparent that a significant component of patient's poor diabetes control is related to social factors including time constraints as well as financial factors, i.e., that patient does not have any medical insurance at this time. SW consult was obtained for further consideration of resources that might help patient adhere more closely to her diabetes regimen on and outpatient basis. Smoking cessation was repeatedly counseled throughout hospital stay. Patient discharged with usual home insulin regimen as well as PO anti-hyperglycemics including Januvia and glipizide. Also discharging patient on nicotine patch with hopes that it might augment her ongoing efforts to quit smoking. Time spent discussing smoking cessation with patient: 3 to 10 minutes - Time Spent with Patient Total time spent providing and/or coordinating discharge services: Less than 30 minutes - Constitutional Vitals: Temp Pulse Resp BP Pulse Ox 98.1 F 72 18 111/67 98 01/07/17 03:22 01/07/17 03:22 01/07/17 03:22 01/07/17 03:22 01/07/17 03:22 General appearance: Present: A&O X 3, pleasant, no acute distress, answers questions appropriately - Head Head exam: Present: atraumatic, normocephalic - Eye Eye exam: Present: PERRL, conjuntiva pink, sclera anicteric - Neck Neck exam general surgery: Present: supple, trachea midline - Respiratory Respiratory exam: Present: CTAB, wheezes (Slight expiratory wheeze heard throughout). Absent: accessory muscle use, decreased breath sounds, prolonged expiratory phase, rales, respiratory distress, rhonchi, stridor - Cardiovascular Cardiovascular exam: Present: RRR, +S1, +S2. Absent: diastolic murmur, gallop, rubs, systolic murmur - GI/Abdominal GI/Abdominal exam: Present: soft. Absent: distended, tenderness - Extremities Exam Extremities exam: Present: warm, radial pulses palpable and symmetrical. Absent : calf tenderness, cyanotic, pedal edema - Neurological Exam Neurological exam: Present: alert, CN II-XII intact, no focal deficits (All extremities moved freely without any gross motor deficit). Absent: facial droop , speech deficit - Skin Skin exam: Present: dry, intact, normal color. Absent: cyanosis, diaphoretic, mottled, pallor <Eloy Garcia - Last Filed: 01/07/17 17:56> Date of Encounter: 01/07/17 Date of admission: 01/05/17 17:35 Primary care physician: Brandee Joiner CNP Consults: 01/07/17 08:01 Consult to Manager Sales Support [CONS] Routine Comment: Reason for Consult: patient on Tresiba and Novolog; patient admittedly non- compliant with MT insulin. 01/07/17 09:38 Consult to Manager Statistical Programming [CONS] Routine Reason for SW Consult: No insurance.. Need some information on resources to get free medication Consult to Manager Statistical Programming [CONS] Routine Reason for SW Consult: Uncontrolled DM-II being discharged this afternoon; no medical insurance and needs insulin/resources. Hospital course: Ms. Walters is a 36 year old female - Time Spent with Patient Total time spent providing and/or coordinating discharge services: - Constitutional Vitals: Temp Pulse Resp BP Pulse Ox 97.9 F 85 18 125/83 98 01/07/17 11:00 01/07/17 11:00 01/07/17 11:00 01/07/17 11:00 01/07/17 11:42 - Attending Attestation I examined this patient and my medical decision-making was reviewed with the Resident Physician. I agree with the documented findings, disposition and treatment plan as described except to the extent set forth below. This is a 36 y/o F with known type 2 DM pt admitted with severe hyperglycemia, due to insulin non compliance. She was admitted here and started her on IV Insulin gtt initially, later switched to ISS. Her symptoms improved now, she is tolerating PO intake we.. She did mention due to her insurance issues she was not able to buy her Insulin injections. So we consulted SW, who provided the pt all the necessary information. Also I personally talked to pt's PCP Brandee Joiner and updated to her about pt's current care
[2017-01-07 10:18] LABS: BUN/Creatinine Ratio 10 (6-26); Blood Urea Nitrogen 8 mg/dL (7-20); Carbon Dioxide 14 mEq/L (19-29); Chloride 112 mEq/L (98-109); Glucose 269 mg/dL (70-99); Osmolality,Calculated 292 (280-300); Potassium 3.8 mEq/L (3.5-4.5); Sodium 137 mEq/L (136-145); eGFR For African Americans > 60 (> 60); eGFR For Non-African Americans > 60 (> 60)
[2017-01-07] MEDS ORDERED: FLUARIX QUAD 2017-18 36MOS UP/PF 0.5 ML SYRINGE IM ONE (11:10)
[2017-01-07 14:28] VITALS: BP 125/83
[2017-01-07] MEDS ORDERED: *HR* GlipiZIDE 5 MG TABLET PO SCH (17:00)
--- NOTE | 2017-01-08 15:08 | Electrocardiograph Report ---
[facility] [employer] [employer] Test Date: 2017-01-05 Pat Name: Alexander Walters Department: 102 Room: 2N04 Gender: F Insurance Agents Supervisor: : 1980 Requested By: Dameon Gunn Order Number: [id number] Reading MD: Toribio Olivia MD Measurements Intervals [place] Rate: 83 P: 20 CA: 172 QRS: 39 QRSD: 109 T: 8 QT: 350 QTc: 389 Interpretive Statements SINUS RHYTHM wnl Electronically Signed On 01-08-2017 15:06:25 EDT by Toribio Olivia MD
== END 2017-01-07 13:11 | disposition home or self-care (01) | DRG 420 ==
LOC: EMEROO 11:03 → 2NNU 11:03 → SUATTDRO 17:35 → 2NNU 18:00
PROVIDERS: ADMIT Nurse Practitioner Acute Care; ATTEND Family Medicine

== ENCOUNTER 2019-01-23 18:42 | Observation (INO) ==
[2019-01-23 19:33] LABS: Basophils # 0.1 K/mcL (0.0-0.2); Basophils % 0.6 %; Eosinophils # 0.3 K/mcL (0.0-0.6); Eosinophils % 2.8 %; Hematocrit 46.3 % (35.3-44.9); Hemoglobin 16.9 g/dL (11.5-15.4); Immature Granulocytes % 0.4 % (0-4); Lymphocytes % 29.5 %; Mean Corpuscular HGB Conc 36.5 g/dL (31.6-35.5); Mean Corpuscular Hemoglobin 30.4 pg (28.0-33.3); Mean Corpuscular Volume 83.3 fL (83.0-100.0); Mean Platelet Volume 10.3 fL (9.4-12.4); Monocytes # 0.5 K/mcL (0.0-1.3); Monocytes % 4.7 %; Neutrophils # 6.4 K/mcL (1.6-8.9); Platelet Count 420 K/mcL (140-400); Red Blood Count 5.56 M/mcL (3.82-4.97); Red Cell Distribution Width 12.9 % (11.5-14.5); White Blood Count 10.3 K/mcL (4.3-11.1)
[2019-01-23 19:39] LABS: VBG HCO3 16 mEq/L (21-27); VBG PCO2 34 mmHg (41-51); VBG PH 7.27 pH Units (7.32-7.42); VBG PO2 83 mmHg (25-50)
[2019-01-23 19:56] LABS: BUN/Creatinine Ratio 17 (6-26); Blood Urea Nitrogen 20 mg/dL (6-20); Calcium 9.4 mg/dL (8.6-10.3); Carbon Dioxide 14 mEq/L (23-29); Chloride 91 mEq/L (98-107); Glucose 583 mg/dL (70-105); Osmolality,Calculated 284 (280-300); Potassium 4.2 mEq/L (3.5-5.1); Sodium 122 mEq/L (136-145); eGFR For African Americans > 60 (> 60); eGFR For Non-African Americans 52 (> 60)
[2019-01-23] MEDS ORDERED: 0.9 % Sodium Chloride 2,000 ML ONE (19:57)
[2019-01-23] MEDS ORDERED: *HR* Dextrose 50 % in Water (Syg) 50 ML SYRINGE IVP PRN ×3 (19:59→21:32)
[2019-01-23] MEDS ORDERED: Insulin Human Regular 100 UNIT in 0.9 % Sodium Chloride 100 ML IVC SCH ×2 (20:00→20:15)
[2019-01-23] MEDS ORDERED: 0.9 % Sodium Chloride 1,000 ML IVC ONE ×2 (20:03→20:04)
[2019-01-23 20:15] LABS: Bilirubin,Urine Negative (Negative); Blood,Urine Negative (Negative); Clarity,Urine Clear (Clear); Color,Urine Yellow (Yellow); Glucose,Urine (UA) >=1000 mg/dL (Normal); Ketones,Urine 40 mg/dL (Negative); Leukocyte Esterase,Urine Negative (Negative); Nitrite,Urine Negative (Negative); PH,Urine 6.5 pH Units (5.0-8.0); Protein,Urine Negative (Neg-Trace); Specific Gravity,Urine > 1.030 (1.010-1.025); Urobilinogen,Urine Normal (Normal)
[2019-01-23] MEDS ORDERED: Naloxone 0.4 MG/ML INJ IVP PRN (21:32)
[2019-01-23] MEDS ORDERED: Insulin Regular, Human 100 UNIT/ML IV PRN (21:32)
[2019-01-23] MEDS ORDERED: D5% in 0.45% NACL 1,000 ML IVC PRN (21:32)
[2019-01-23] MEDS ORDERED: 0.45 % Sodium Chloride w/KCl 20 MEQ/1,000 ML MLS IVC PRN (21:45)
[2019-01-23] MEDS: 0.9 % Sodium Chloride 1,000 ML IVC SCH ×2 (22:43→23:49)
[2019-01-23] MEDS: Nicotine 14 MG PATCH.TD24 TD SCH (22:44)
[2019-01-23] MEDS: D5% in 0.45% NACL w KCl 20 MEQ/1,000 ML MLS IVC PRN (23:48)
[2019-01-24] MEDS ORDERED: Ondansetron ODT 4 MG TAB.RAPDIS SL STA (00:32)
[2019-01-24] MEDS ORDERED: Ondansetron ODT 4 MG TAB.RAPDIS SL PRN (00:36)
[2019-01-24 00:39] LABS: VBG HCO3 16 mEq/L (21-27); VBG PCO2 29 mmHg (41-51); VBG PH 7.35 pH Units (7.32-7.42); VBG PO2 177 mmHg (25-50)
[2019-01-24] MEDS: traMADol 50 MG TABLET PO PRN ×2 (00:39→19:29)
[2019-01-24 00:53] LABS: BUN/Creatinine Ratio 21 (6-26); Blood Urea Nitrogen 16 mg/dL (6-20); Calcium 8.2 mg/dL (8.6-10.3); Carbon Dioxide 13 mEq/L (23-29); Chloride 105 mEq/L (98-107); Glucose 186 mg/dL (70-105); Osmolality,Calculated 274 (280-300); Potassium 3.5 mEq/L (3.5-5.1); Sodium 129 mEq/L (136-145); eGFR For African Americans > 60 (> 60); eGFR For Non-African Americans > 60 (> 60)
[2019-01-24] MEDS ORDERED: Calcium Gluconate 1gm/50mL 1 GM/50 ML BAG IVPB ONE (02:00)
[2019-01-24 02:12] LABS: Bilirubin,Urine Small (Negative); Blood,Urine Negative (Negative); Clarity,Urine Clear (Clear); Color,Urine Yellow (Yellow); Glucose,Urine (UA) >=1000 mg/dL (Normal); Ketones,Urine >=160 mg/dL (Negative); Leukocyte Esterase,Urine Negative (Negative); Nitrite,Urine Negative (Negative); PH,Urine 6.5 pH Units (5.0-8.0); Protein,Urine 30 mg/dL (Neg-Trace); Specific Gravity,Urine > 1.030 (1.010-1.025); Urobilinogen,Urine Normal (Normal)
[2019-01-24 02:14] LABS: Bacteria,Urine Moderate per hpf (None-Few); Hyaline Casts,Urine None Seen per lpf (None-Few); Squamous Epithelial Cell,Urine Many per lpf (None-Few)
[2019-01-24 02:22] LABS: Amphetamine Screen,Urine Negative ng/mL (Cutoff=1000); Barbiturate Screen,Urine Negative ng/mL (Cutoff=200); Benzodiazepines Screen,Urine Negative ng/mL (Cutoff=200); Cannabinoid Screen,Urine Positive ng/mL (Cutoff = 50); Cocaine Screen,Urine Negative ng/mL (Cutoff= 300); Opiate Screen,Urine Negative ng/mL (Cutoff=300); Phencyclidine Screen,Urine Negative ng/mL (Cutoff=25)
[2019-01-24] MEDS: D5% in 0.45% NACL w KCl 20 MEQ/1,000 ML MLS IVC PRN (03:45)
[2019-01-24 04:56] LABS: VBG HCO3 14 mEq/L (21-27); VBG PCO2 22 mmHg (41-51); VBG PH 7.41 pH Units (7.32-7.42); VBG PO2 201 mmHg (25-50)
[2019-01-24 04:59] LABS: Prothrombin Time 11.9 Seconds (9.4-12.1)
[2019-01-24 05:28] LABS: Alanine Aminotransferase 9 Units/L (7-52); Albumin 3.6 g/dL (3.5-5.7); Albumin/Globulin Ratio 1.2 (1.1-2.2); Alkaline Phosphatase 146 Units/L (34-104); Aspartate Amino Transferase 12 Units/L (13-39); BUN/Creatinine Ratio 19 (6-26); Bilirubin,Total 0.3 mg/dL (0.3-1.0); Blood Urea Nitrogen 15 mg/dL (6-20); Calcium 8.4 mg/dL (8.6-10.3); Carbon Dioxide 15 mEq/L (23-29); Chloride 106 mEq/L (98-107); Chol/HDL Ratio 10.4 (0-4.9); Cholesterol 218 mg/dL (< 200); Globulin 2.9 g/dL (2.4-3.5); Glucose 160 mg/dL (70-105); HDL Cholesterol 21 mg/dL (40-59); Magnesium 1.8 mg/dL (1.6-2.6); Osmolality,Calculated 276 (280-300); Phosphorous 1.6 mg/dL (2.7-4.5); Potassium 3.3 mEq/L (3.5-5.1); Sodium 131 mEq/L (136-145); Total Protein 6.5 g/dL (6.4-8.9); Triglycerides 1126 mg/dL (< 150); eGFR For African Americans > 60 (> 60); eGFR For Non-African Americans > 60 (> 60)
[2019-01-24] MEDS: *HR* Heparin 5,000 UNIT/ML VIAL SQ SCH ×2 (05:43→17:05)
[2019-01-24 06:32] LABS: Basophils % 0.4 %; Eosinophils # 0.4 K/mcL (0.0-0.6); Eosinophils % 4.2 %; Hematocrit 39.8 % (35.3-44.9); Hemoglobin 14.6 g/dL (11.5-15.4); Immature Granulocytes % 0.5 % (0-4); Lymphocytes # 3.6 K/mcL (0.6-4.6); Lymphocytes % 39.2 %; Mean Corpuscular HGB Conc 36.7 g/dL (31.6-35.5); Mean Corpuscular Hemoglobin 29.9 pg (28.0-33.3); Mean Corpuscular Volume 81.4 fL (83.0-100.0); Mean Platelet Volume 10.3 fL (9.4-12.4); Monocytes # 0.5 K/mcL (0.0-1.3); Monocytes % 5.7 %; Neutrophils # 4.6 K/mcL (1.6-8.9); Platelet Count 376 K/mcL (140-400); Red Blood Count 4.89 M/mcL (3.82-4.97); White Blood Count 9.2 K/mcL (4.3-11.1)
[2019-01-24] MEDS: Pregabalin 50 MG CAPSULE PO SCH ×3 (07:56→19:30)
[2019-01-24] MEDS: Nicotine 14 MG PATCH.TD24 TD SCH (07:56)
[2019-01-24] MEDS ORDERED: Insulin Human Regular 100 UNIT in 0.9 % Sodium Chloride 100 ML IVC SCH (08:00)
[2019-01-24 09:14] LABS: BUN/Creatinine Ratio 18 (6-26); Blood Urea Nitrogen 13 mg/dL (6-20); Calcium 8.3 mg/dL (8.6-10.3); Carbon Dioxide 15 mEq/L (23-29); Chloride 106 mEq/L (98-107); Glucose 123 mg/dL (70-105); Osmolality,Calculated 271 (280-300); Potassium 3.6 mEq/L (3.5-5.1); Sodium 130 mEq/L (136-145); eGFR For African Americans > 60 (> 60); eGFR For Non-African Americans > 60 (> 60)
[2019-01-24 11:02] LABS: Chlamydia Trachomatis DNA Ur NOT DETECTED (Not Detect)
[2019-01-24] MEDS ORDERED: Ketorolac 15 MG/ML VIAL IVP ONE (11:04)
[2019-01-24] MEDS: clonazePAM 1 MG TABLET PO SCH (11:19)
[2019-01-24] MEDS: Fenofibrate 54 MG TABLET PO SCH (11:19)
[2019-01-24 12:55] LABS: BUN/Creatinine Ratio 16 (6-26); Blood Urea Nitrogen 12 mg/dL (6-20); Calcium 8.1 mg/dL (8.6-10.3); Carbon Dioxide 11 mEq/L (23-29); Chloride 106 mEq/L (98-107); Glucose 139 mg/dL (70-105); Osmolality,Calculated 270 (280-300); Potassium 4.4 mEq/L (3.5-5.1); Sodium 129 mEq/L (136-145); eGFR For African Americans > 60 (> 60); eGFR For Non-African Americans > 60 (> 60)
[2019-01-24 16:52] LABS: BUN/Creatinine Ratio 15 (6-26); Blood Urea Nitrogen 11 mg/dL (6-20); Calcium 8.1 mg/dL (8.6-10.3); Carbon Dioxide 16 mEq/L (23-29); Chloride 107 mEq/L (98-107); Glucose 195 mg/dL (70-105); Osmolality,Calculated 277 (280-300); Sodium 131 mEq/L (136-145); eGFR For African Americans > 60 (> 60); eGFR For Non-African Americans > 60 (> 60)
[2019-01-24] MEDS ORDERED: Dextrose Gel 15 GM/37.5 ML TUBE PO PRN (17:07)
[2019-01-24] MEDS ORDERED: *HR* Dextrose 50 % in Water (Syg) 50 ML SYRINGE IVP PRN (17:07)
[2019-01-24] MEDS ORDERED: D5% in Water 1,000 ML IVC PRN (17:07)
[2019-01-24] MEDS: Insulin DETEMIR 100 UNIT/ML X5UNITS SQ SCH ×2 (18:19→21:35)
[2019-01-24] MEDS: Insulin LISPRO 300 UNITS/3 ML VIAL SQ SCH ×2 (19:32→21:37)
[2019-01-25] MEDS ORDERED: Insulin Human Regular 10 UNIT in 0.9 % Sodium Chloride 10 ML IV ONE ×2 (00:39→05:21)
[2019-01-25 04:23] LABS: Hematocrit 38.7 % (35.3-44.9); Hemoglobin 13.7 g/dL (11.5-15.4); Mean Corpuscular HGB Conc 35.4 g/dL (31.6-35.5); Mean Corpuscular Hemoglobin 29.7 pg (28.0-33.3); Mean Corpuscular Volume 83.9 fL (83.0-100.0); Platelet Count 298 K/mcL (140-400); Red Blood Count 4.61 M/mcL (3.82-4.97); Red Cell Distribution Width 13.2 % (11.5-14.5); White Blood Count 6.4 K/mcL (4.3-11.1)
[2019-01-25] MEDS ORDERED: *HR* LORazepam 2 MG/ML VIAL IVP ONE (04:43)
[2019-01-25 04:44] LABS: % Iron Saturation 12 % (15-50); Iron 33 mcg/dL (50-170); Transferrin 199 mg/dL (203-362)
[2019-01-25 05:00] LABS: BUN/Creatinine Ratio 11 (6-26); Blood Urea Nitrogen 9 mg/dL (6-20); Calcium 8.7 mg/dL (8.6-10.3); Carbon Dioxide 18 mEq/L (23-29); Chloride 103 mEq/L (98-107); Chol/HDL Ratio 11.1 (0-4.9); Cholesterol 221 mg/dL (< 200); Glucose 338 mg/dL (70-105); HDL Cholesterol 20 mg/dL (40-59); Osmolality,Calculated 280 (280-300); Potassium 4.8 mEq/L (3.5-5.1); Sodium 129 mEq/L (136-145); Triglycerides 1240 mg/dL (< 150); eGFR For African Americans > 60 (> 60); eGFR For Non-African Americans > 60 (> 60)
[2019-01-25 05:03] LABS: Ferritin 43 ng/mL (10-120)
[2019-01-25] MEDS: *HR* Heparin 5,000 UNIT/ML VIAL SQ SCH ×2 (06:07→17:03)
[2019-01-25] MEDS ORDERED: Insulin LISPRO 300 UNITS/3 ML VIAL SQ SCH (08:00)
[2019-01-25] MEDS: clonazePAM 1 MG TABLET PO SCH (08:10)
[2019-01-25] MEDS: Fenofibrate 54 MG TABLET PO SCH (08:10)
[2019-01-25] MEDS: Pregabalin 50 MG CAPSULE PO SCH ×3 (08:11→19:48)
[2019-01-25] MEDS: Insulin LISPRO 300 UNITS/3 ML VIAL SQ SCH ×6 (08:12→20:29)
[2019-01-25] MEDS: Insulin DETEMIR 100 UNIT/ML X5UNITS SQ SCH ×3 (08:14→20:30)
[2019-01-25] MEDS: Nicotine 14 MG PATCH.TD24 TD SCH (08:19)
[2019-01-25 08:30] LABS: Estimated Average Glucose 344 mg/dl
[2019-01-25] MEDS: Tiotropium 18 MCG inhalation IH SCH (18:32)
[2019-01-25] MEDS: traMADol 50 MG TABLET PO PRN (20:29)
[2019-01-25] MEDS ORDERED: clonazePAM 0.5 MG TABLET PO ONE (23:30)
[2019-01-26] MEDS ORDERED: Insulin LISPRO 300 UNITS/3 ML VIAL SQ ONE ×2 (00:25→22:52)
[2019-01-26 02:10] LABS: Hemoglobin 12.9 g/dL (11.5-15.4); Mean Corpuscular HGB Conc 35.8 g/dL (31.6-35.5); Mean Corpuscular Hemoglobin 30.4 pg (28.0-33.3); Mean Corpuscular Volume 84.7 fL (83.0-100.0); Mean Platelet Volume 10.1 fL (9.4-12.4); Platelet Count 265 K/mcL (140-400); Red Blood Count 4.25 M/mcL (3.82-4.97); Red Cell Distribution Width 13.1 % (11.5-14.5); White Blood Count 6.1 K/mcL (4.3-11.1)
[2019-01-26] MEDS: *HR* Heparin 5,000 UNIT/ML VIAL SQ SCH (05:30)
[2019-01-26 07:20] VITALS: BP 104/71
[2019-01-26] MEDS: Tiotropium 18 MCG inhalation IH SCH (08:11)
[2019-01-26] MEDS: clonazePAM 1 MG TABLET PO SCH (08:23)
[2019-01-26] MEDS: Pregabalin 50 MG CAPSULE PO SCH (08:23)
[2019-01-26] MEDS: Nicotine 14 MG PATCH.TD24 TD SCH (08:25)
[2019-01-26] MEDS: Insulin LISPRO 300 UNITS/3 ML VIAL SQ SCH ×2 (08:25→08:27)
[2019-01-26] MEDS: Insulin DETEMIR 100 UNIT/ML X5UNITS SQ SCH (08:29)
[2019-01-26] MEDS ORDERED: Fenofibrate 54 MG TABLET PO SCH (09:00)
== END 2019-01-26 11:52 | disposition home or self-care (01) ==
LOC: 2NNU 18:42 → EMEROOARM 18:42 → SUATTDRO 21:51 → 2NNU 22:33 → 3BNU 01-25 22:36
PROVIDERS: ADMIT Family Medicine; ATTEND Internal Medicine

== ENCOUNTER 2019-09-02 14:37 | Observation (INO) ==
[2019-09-02 15:16] LABS: Basophils % 0.6 %; Eosinophils # 0.2 K/mcL (0.0-0.6); Hematocrit 43.2 % (35.3-44.9); Immature Granulocytes % 0.5 % (0-4); Lymphocytes # 2.4 K/mcL (0.6-4.6); Lymphocytes % 36.3 %; Mean Corpuscular HGB Conc 34.7 g/dL (31.6-35.5); Mean Corpuscular Hemoglobin 29.3 pg (28.0-33.3); Mean Corpuscular Volume 84.4 fL (83.0-100.0); Mean Platelet Volume 10.8 fL (9.4-12.4); Monocytes # 0.3 K/mcL (0.0-1.3); Monocytes % 4.3 %; Neutrophils # 3.6 K/mcL (1.6-8.9); Platelet Count 262 K/mcL (140-400); Red Blood Count 5.12 M/mcL (3.82-4.97); Red Cell Distribution Width 12.5 % (11.5-14.5); Segmented Neutrophils % 55.3 %; White Blood Count 6.6 K/mcL (4.3-11.1)
[2019-09-02 15:18] LABS: VBG HCO3 20 mEq/L (21-27); VBG PCO2 33 mmHg (41-51); VBG PH 7.39 pH Units (7.32-7.42); VBG PO2 115 mmHg (25-50)
[2019-09-02 15:41] LABS: Estimated Average Glucose 369 mg/dl; Hemoglobin A1C 14.5 %
[2019-09-02 15:46] LABS: BUN/Creatinine Ratio 16 (6-26); Blood Urea Nitrogen 17 mg/dL (6-20); Calcium 10.3 mg/dL (8.6-10.3); Carbon Dioxide 17 mEq/L (23-29); Chloride 92 mEq/L (98-107); Glucose 655 mg/dL (70-105); Lipase 23 Units/L (11-82); Magnesium 2.1 mg/dL (1.6-2.6); Osmolality,Calculated 290 (280-300); Phosphorous 4.1 mg/dL (2.7-4.5); Sodium 124 mEq/L (136-145); Troponin I < 0.03 ng/mL (< 0.04); eGFR For African Americans > 60 (> 60); eGFR For Non-African Americans 57 (> 60)
[2019-09-02 15:47] LABS: Bilirubin,Urine Negative (Negative); Blood,Urine Negative (Negative); Clarity,Urine Clear (Clear); Color,Urine Colorless (Yellow); Glucose,Urine (UA) >=1000 mg/dL (Normal); Ketones,Urine 40 mg/dL (Negative); Leukocyte Esterase,Urine Negative (Negative); Nitrite,Urine Negative (Negative); Protein,Urine Negative (Neg-Trace); Specific Gravity,Urine > 1.030 (1.010-1.025); Urobilinogen,Urine Normal (Normal)
[2019-09-02] MEDS ORDERED: Insulin Human Regular 100 UNIT in 0.9 % Sodium Chloride 100 ML IVC SCH ×2 (16:00→16:45)
[2019-09-02] MEDS ORDERED: Potassium Chloride 40 MEQ, Lidocaine 1% 2 ML in D5% in Water 500 ML IVPB ONE (16:01)
[2019-09-02] MEDS ORDERED: Morphine Sulfate 2 MG/ML SYRINGE IVP ONE (16:08)
[2019-09-02] MEDS ORDERED: *HR* Promethazine 25 MG/ML VIAL IVP ONE (16:08)
[2019-09-02] MEDS: 0.9 % Sodium Chloride 1,000 ML IVC SCH ×2 (16:10→20:01)
[2019-09-02] MEDS ORDERED: D5% in 0.45% NACL 1,000 ML IVC PRN (16:35)
[2019-09-02] MEDS ORDERED: Acetaminophen 325 MG TABLET PO PRN (16:35)
[2019-09-02] MEDS ORDERED: *HR* Dextrose 50 % in Water (Vial) 50 ML VIAL IVP PRN (16:35)
[2019-09-02] MEDS ORDERED: D5% in 0.45% NACL w KCl 20 MEQ/1,000 ML MLS IVC PRN (16:35)
[2019-09-02] MEDS ORDERED: Insulin Regular, Human 100 UNIT/ML IV PRN ×2 (16:35)
[2019-09-02] MEDS ORDERED: Naloxone 0.4 MG/ML INJ IVP PRN (16:35)
[2019-09-02 17:40] LABS: Potassium 3.8 mEq/L (3.5-5.1)
[2019-09-02] MEDS: 0.9 % Sodium Chloride w KCl 20 MEQ/1,000 ML MLS IVC SCH (20:45)
[2019-09-02] MEDS: Pregabalin 75 MG CAPSULE PO SCH (20:46)
[2019-09-02] MEDS: *HR* Heparin 5,000 UNIT/ML VIAL SQ SCH (20:46)
[2019-09-02] MEDS: Ondansetron 4 MG/2 ML VIAL IVP PRN (20:47)
[2019-09-02 21:50] LABS: Carbon Dioxide 20 mEq/L (23-29); Chloride 103 mEq/L (98-107); Cholesterol 208 mg/dL (< 200); HDL Cholesterol 26 mg/dL (40-59); Potassium 3.4 mEq/L (3.5-5.1); Sodium 132 mEq/L (136-145); Triglycerides 894 mg/dL (< 150)
[2019-09-02 21:51] LABS: BUN/Creatinine Ratio 17 (6-26); Blood Urea Nitrogen 14 mg/dL (6-20); Calcium 9.3 mg/dL (8.6-10.3); Carbon Dioxide 20 mEq/L (23-29); Chloride 103 mEq/L (98-107); Glucose 237 mg/dL (70-105); Osmolality,Calculated 282 (280-300); Potassium 3.4 mEq/L (3.5-5.1); Sodium 132 mEq/L (136-145); eGFR For African Americans > 60 (> 60); eGFR For Non-African Americans > 60 (> 60)
[2019-09-02] MEDS ORDERED: Insulin DETEMIR 100 UNIT/ML X5UNITS SQ SCH (22:30)
[2019-09-03] MEDS: Melatonin 3 MG TABLET PO SCH ×2 (00:44→20:28)
[2019-09-03] MEDS: 0.9 % Sodium Chloride 1,000 ML IVC SCH (00:44)
[2019-09-03] MEDS: Ondansetron 4 MG/2 ML VIAL IVP PRN (04:19)
[2019-09-03 04:34] LABS: Hematocrit 39.9 % (35.3-44.9); Mean Corpuscular HGB Conc 35.1 g/dL (31.6-35.5); Mean Corpuscular Hemoglobin 30.3 pg (28.0-33.3); Mean Corpuscular Volume 86.4 fL (83.0-100.0); Mean Platelet Volume 10.2 fL (9.4-12.4); Platelet Count 224 K/mcL (140-400); Red Blood Count 4.62 M/mcL (3.82-4.97); White Blood Count 6.6 K/mcL (4.3-11.1)
[2019-09-03 04:48] LABS: BUN/Creatinine Ratio 14 (6-26); Blood Urea Nitrogen 13 mg/dL (6-20); Calcium 8.6 mg/dL (8.6-10.3); Carbon Dioxide 18 mEq/L (23-29); Chloride 103 mEq/L (98-107); Glucose 357 mg/dL (70-105); Magnesium 1.8 mg/dL (1.6-2.6); Osmolality,Calculated 286 (280-300); Potassium 3.9 mEq/L (3.5-5.1); Sodium 131 mEq/L (136-145); eGFR For African Americans > 60 (> 60); eGFR For Non-African Americans > 60 (> 60)
[2019-09-03] MEDS: *HR* Heparin 5,000 UNIT/ML VIAL SQ SCH ×3 (06:08→20:28)
[2019-09-03] MEDS ORDERED: Dextrose Gel 15 GM/37.5 ML TUBE PO PRN ×2 (07:48)
[2019-09-03] MEDS ORDERED: D5% in Water 1,000 ML IVC PRN (07:48)
[2019-09-03] MEDS: Pregabalin 75 MG CAPSULE PO SCH ×3 (08:07→20:28)
[2019-09-03] MEDS: Insulin LISPRO 300 UNITS/3 ML VIAL SQ SCH ×9 (08:07→21:30)
[2019-09-03] MEDS: Fenofibrate 54 MG TABLET PO SCH (08:07)
[2019-09-03] MEDS ORDERED: Insulin DETEMIR 100 UNIT/ML X5UNITS SQ SCH ×2 (09:00→21:00)
[2019-09-03] MEDS ORDERED: 0.9 % Sodium Chloride 500 ML IVC SCH (14:00)
[2019-09-04 04:03] LABS: Basophils % 0.8 %; Eosinophils # 0.2 K/mcL (0.0-0.6); Eosinophils % 3.8 %; Hematocrit 39.8 % (35.3-44.9); Hemoglobin 14.4 g/dL (11.5-15.4); Immature Granulocytes % 0.4 % (0-4); Lymphocytes # 2.6 K/mcL (0.6-4.6); Lymphocytes % 48.4 %; Mean Corpuscular HGB Conc 36.2 g/dL (31.6-35.5); Mean Corpuscular Hemoglobin 31.7 pg (28.0-33.3); Mean Corpuscular Volume 87.7 fL (83.0-100.0); Mean Platelet Volume 10.3 fL (9.4-12.4); Monocytes # 0.3 K/mcL (0.0-1.3); Monocytes % 4.9 %; Neutrophils # 2.2 K/mcL (1.6-8.9); Platelet Count 239 K/mcL (140-400); Red Blood Count 4.54 M/mcL (3.82-4.97); Segmented Neutrophils % 41.7 %; White Blood Count 5.3 K/mcL (4.3-11.1)
[2019-09-04 04:44] LABS: BUN/Creatinine Ratio 16 (6-26); Blood Urea Nitrogen 16 mg/dL (6-20); Calcium 9.4 mg/dL (8.6-10.3); Carbon Dioxide 16 mEq/L (23-29); Chloride 98 mEq/L (98-107); Glucose 350 mg/dL (70-105); Magnesium 2.3 mg/dL (1.6-2.6); Osmolality,Calculated 277 (280-300); Phosphorous 3.9 mg/dL (2.7-4.5); Potassium 4.2 mEq/L (3.5-5.1); Sodium 126 mEq/L (136-145); eGFR For African Americans > 60 (> 60); eGFR For Non-African Americans 59 (> 60)
[2019-09-04] MEDS: *HR* Heparin 5,000 UNIT/ML VIAL SQ SCH ×3 (06:11→21:14)
[2019-09-04] MEDS ORDERED: Ringers Solution, Lactated 500 ML IVC SCH (07:30)
[2019-09-04] MEDS: Insulin LISPRO 300 UNITS/3 ML VIAL SQ SCH ×6 (07:44→21:14)
[2019-09-04] MEDS: Pregabalin 75 MG CAPSULE PO SCH ×3 (07:50→21:13)
[2019-09-04] MEDS: Fenofibrate 54 MG TABLET PO SCH (07:51)
[2019-09-04] MEDS ORDERED: Insulin DETEMIR 100 UNIT/ML X5UNITS SQ SCH ×2 (09:00→21:00)
[2019-09-04] MEDS ORDERED: Insulin LISPRO 300 UNITS/3 ML VIAL SQ SCH (17:00)
[2019-09-04] MEDS: 0.9 % Sodium Chloride w KCl 20 MEQ/1,000 ML MLS IVC SCH ×4 (19:36→23:31)
[2019-09-04] MEDS: Melatonin 3 MG TABLET PO SCH (21:13)
[2019-09-04] MEDS: 0.9 % Sodium Chloride 1,000 ML IVC SCH (23:33)
[2019-09-05] MEDS: 0.9 % Sodium Chloride 1,000 ML IVC SCH ×3 (01:01→01:03)
[2019-09-05] MEDS: *HR* Heparin 5,000 UNIT/ML VIAL SQ SCH ×3 (04:06→20:22)
[2019-09-05 06:29] LABS: BUN/Creatinine Ratio 21 (6-26); Blood Urea Nitrogen 18 mg/dL (6-20); Calcium 8.5 mg/dL (8.6-10.3); Carbon Dioxide 18 mEq/L (23-29); Chloride 97 mEq/L (98-107); Glucose 389 mg/dL (70-105); Magnesium 1.7 mg/dL (1.6-2.6); Osmolality,Calculated 280 (280-300); Phosphorous 4.3 mg/dL (2.7-4.5); Sodium 126 mEq/L (136-145); eGFR For African Americans > 60 (> 60); eGFR For Non-African Americans > 60 (> 60)
[2019-09-05] MEDS: Insulin DETEMIR 100 UNIT/ML X5UNITS SQ SCH ×2 (08:50→20:20)
[2019-09-05] MEDS: Insulin LISPRO 300 UNITS/3 ML VIAL SQ SCH ×7 (08:51→20:20)
[2019-09-05] MEDS: Pregabalin 75 MG CAPSULE PO SCH ×3 (08:53→20:20)
[2019-09-05] MEDS: Fenofibrate 54 MG TABLET PO SCH (08:53)
[2019-09-05] MEDS: Melatonin 3 MG TABLET PO SCH (20:20)
[2019-09-06] MEDS: *HR* Heparin 5,000 UNIT/ML VIAL SQ SCH ×3 (05:18→21:06)
[2019-09-06 07:17] LABS: BUN/Creatinine Ratio 22 (6-26); Blood Urea Nitrogen 21 mg/dL (6-20); Calcium 8.6 mg/dL (8.6-10.3); Carbon Dioxide 12 mEq/L (23-29); Chloride 103 mEq/L (98-107); Glucose 304 mg/dL (70-105); Magnesium 1.9 mg/dL (1.6-2.6); Osmolality,Calculated 282 (280-300); Phosphorous 3.8 mg/dL (2.7-4.5); Potassium 4.9 mEq/L (3.5-5.1); Sodium 129 mEq/L (136-145); eGFR For African Americans > 60 (> 60); eGFR For Non-African Americans > 60 (> 60)
[2019-09-06] MEDS ORDERED: Ringers Solution, Lactated 1,000 ML IVC SCH (08:30)
[2019-09-06] MEDS: Pregabalin 75 MG CAPSULE PO SCH ×3 (08:39→19:53)
[2019-09-06] MEDS: Fenofibrate 54 MG TABLET PO SCH (08:40)
[2019-09-06] MEDS: Insulin LISPRO 300 UNITS/3 ML VIAL SQ SCH ×7 (08:40→19:54)
[2019-09-06] MEDS ORDERED: Insulin DETEMIR 100 UNIT/ML X5UNITS SQ SCH (09:00)
[2019-09-06] MEDS ORDERED: Furosemide 20 MG TABLET PO SCH (09:00)
[2019-09-06] MEDS: Insulin DETEMIR 100 UNIT/ML X5UNITS SQ SCH ×2 (09:46→20:46)
[2019-09-06 16:33] LABS: BUN/Creatinine Ratio 19 (6-26); Blood Urea Nitrogen 17 mg/dL (6-20); Calcium 9.3 mg/dL (8.6-10.3); Carbon Dioxide 24 mEq/L (23-29); Chloride 100 mEq/L (98-107); Glucose 240 mg/dL (70-105); Osmolality,Calculated 285 (280-300); Potassium 3.6 mEq/L (3.5-5.1); Sodium 133 mEq/L (136-145); eGFR For African Americans > 60 (> 60); eGFR For Non-African Americans > 60 (> 60)
[2019-09-06] MEDS: Melatonin 3 MG TABLET PO SCH (19:53)
[2019-09-07 01:14] LABS: BUN/Creatinine Ratio 21 (6-26); Blood Urea Nitrogen 22 mg/dL (6-20); Calcium 9.5 mg/dL (8.6-10.3); Carbon Dioxide 23 mEq/L (23-29); Chloride 100 mEq/L (98-107); Glucose 263 mg/dL (70-105); Magnesium 1.8 mg/dL (1.6-2.6); Osmolality,Calculated 288 (280-300); Potassium 3.6 mEq/L (3.5-5.1); Sodium 133 mEq/L (136-145); eGFR For African Americans > 60 (> 60); eGFR For Non-African Americans 59 (> 60)
[2019-09-07] MEDS: *HR* Heparin 5,000 UNIT/ML VIAL SQ SCH (05:22)
[2019-09-07 07:20] VITALS: BP 118/77
[2019-09-07 08:24] LABS: Bacteria,Urine Few per hpf (None-Few); Bilirubin,Urine Negative (Negative); Blood,Urine Negative (Negative); Clarity,Urine Clear (Clear); Color,Urine Light-Yellow (Yellow); Glucose,Urine (UA) >=1000 mg/dL (Normal); Ketones,Urine Negative (Negative); Leukocyte Esterase,Urine Moderate (Negative); Mucus,Urine Few per lpf (None-Few); Nitrite,Urine Negative (Negative); PH,Urine 6.5 pH Units (5.0-8.0); Protein,Urine Negative (Neg-Trace); Specific Gravity,Urine 1.024 (1.010-1.025); Squamous Epithelial Cell,Urine Few per hpf (None-Few); Urobilinogen,Urine Normal (Normal); WBC,Urine TNTC per hpf (0-3)
[2019-09-07] MEDS: Pregabalin 75 MG CAPSULE PO SCH (08:59)
[2019-09-07] MEDS: Fenofibrate 54 MG TABLET PO SCH (08:59)
[2019-09-07] MEDS: Insulin LISPRO 300 UNITS/3 ML VIAL SQ SCH ×2 (09:05)
[2019-09-07] MEDS: Insulin DETEMIR 100 UNIT/ML X5UNITS SQ SCH (09:06)
== END 2019-09-07 11:00 | disposition home or self-care (01) ==
LOC: EMEROOARM 14:37 → 2NNU 14:37 → SUATTDRO 18:41 → 2NNU 20:12 → 3BNU 09-04 16:39
PROVIDERS: ADMIT Internal Medicine; ATTEND Internal Medicine

== ENCOUNTER 2020-01-19 13:30 | Observation (INO) ==
[2020-01-19] MEDS ORDERED: 0.9 % Sodium Chloride 1,000 ML IVC ONE (13:37)
[2020-01-19] MEDS ORDERED: *HR* FentaNYL (PF) 100 MCG/2 ML VIAL IVP ONE (13:58)
[2020-01-19] MEDS ORDERED: Ondansetron 4 MG/2 ML VIAL IVP ONE (13:58)
[2020-01-19 14:23] LABS: Basophils # 0.1 K/mcL (0.0-0.2); Basophils % 0.5 %; Eosinophils # 0.2 K/mcL (0.0-0.6); Hematocrit 46.4 % (35.3-44.9); Hemoglobin 15.8 g/dL (11.5-15.4); Immature Granulocytes % 0.5 % (0-4); Lymphocytes # 2.7 K/mcL (0.6-4.6); Lymphocytes % 27.2 %; Mean Corpuscular HGB Conc 34.1 g/dL (31.6-35.5); Mean Corpuscular Hemoglobin 29.6 pg (28.0-33.3); Mean Corpuscular Volume 86.9 fL (83.0-100.0); Mean Platelet Volume 11.1 fL (9.4-12.4); Monocytes # 0.4 K/mcL (0.0-1.3); Monocytes % 3.8 %; Neutrophils # 6.5 K/mcL (1.6-8.9); Platelet Count 269 K/mcL (140-400); Red Blood Count 5.34 M/mcL (3.82-4.97); Red Cell Distribution Width 12.9 % (11.5-14.5); White Blood Count 9.8 K/mcL (4.3-11.1)
[2020-01-19 14:25] LABS: VBG HCO3 20 mEq/L (21-27); VBG PCO2 33 mmHg (41-51); VBG PH 7.38 pH Units (7.32-7.42); VBG PO2 79 mmHg (25-50)
[2020-01-19 14:27] LABS: Bacteria,Urine Few per hpf (None-Few); Bilirubin,Urine Negative (Negative); Blood,Urine Negative (Negative); Clarity,Urine Turbid (Clear); Color,Urine Colorless (Yellow); Glucose,Urine (UA) >=1000 mg/dL (Normal); Ketones,Urine 10 mg/dL (Negative); Leukocyte Esterase,Urine Negative (Negative); Nitrite,Urine Negative (Negative); Protein,Urine Negative (Neg-Trace); Specific Gravity,Urine > 1.030 (1.010-1.025); Squamous Epithelial Cell,Urine Moderate per hpf (None-Few); Urobilinogen,Urine Normal (Normal); WBC,Urine 30-50 per hpf (0-3)
[2020-01-19 15:02] LABS: Alanine Aminotransferase 27 Units/L (7-52); Albumin 4.4 g/dL (3.5-5.7); Albumin/Globulin Ratio 1.2 (1.1-2.2); Alkaline Phosphatase 163 Units/L (34-104); Aspartate Amino Transferase 19 Units/L (13-39); BUN/Creatinine Ratio 19 (6-26); Bilirubin,Total 0.5 mg/dL (0.3-1.0); Blood Urea Nitrogen 19 mg/dL (6-20); Calcium 9.8 mg/dL (8.6-10.3); Carbon Dioxide 19 mEq/L (23-29); Chloride 89 mEq/L (98-107); Globulin 3.6 g/dL (2.4-3.5); Glucose 744 mg/dL (70-105); Osmolality,Calculated 290 (280-300); Phosphorous 2.7 mg/dL (2.7-4.5); Potassium 3.9 mEq/L (3.5-5.1); Sodium 121 mEq/L (136-145); eGFR For African Americans > 60 (> 60); eGFR For Non-African Americans > 60 (> 60)
[2020-01-19] MEDS ORDERED: Insulin Human Regular 12 UNIT in 0.9 % Sodium Chloride 10 ML IV ONE (15:11)
[2020-01-19] MEDS ORDERED: Naloxone 0.4 MG/ML INJ IVP PRN (15:12)
[2020-01-19] MEDS ORDERED: Insulin Human Regular 100 UNIT in 0.9 % Sodium Chloride 100 ML IVC SCH ×2 (15:15→15:30)
[2020-01-19] MEDS ORDERED: Potassium Chloride 40 MEQ, Lidocaine 1% 2 ML in 0.9 % Sodium Chloride 500 ML IVPB ONE (15:15)
[2020-01-19] MEDS ORDERED: 0.9 % Sodium Chloride w KCl 20 MEQ/1,000 ML MLS IVC SCH (15:15)
[2020-01-19] MEDS ORDERED: *HR* Dextrose 50 % in Water (Vial) 50 ML VIAL IVP PRN ×2 (15:16→15:21)
[2020-01-19] MEDS ORDERED: Insulin Regular, Human 100 UNIT/ML IV PRN (15:16)
[2020-01-19] MEDS ORDERED: D5% in 0.45% NACL 1,000 ML IVC PRN (15:16)
[2020-01-19] MEDS ORDERED: D5% in Water 1,000 ML IVC PRN (15:21)
[2020-01-19] MEDS ORDERED: Dextrose Gel 15 GM/37.5 ML TUBE PO PRN ×2 (15:21)
[2020-01-19] MEDS ORDERED: Nicotine 21 MG PATCH.TD24 TD SCH (16:00)
[2020-01-19] MEDS: Ondansetron 4 MG/2 ML VIAL IVP PRN ×2 (16:43→21:22)
[2020-01-19] MEDS ORDERED: cefTRIAXone 1,000 MG in Water for inj. (sterile) 10 ML IVP SCH (17:00)
[2020-01-19] MEDS: D5% in 0.45% NACL w KCl 20 MEQ/1,000 ML MLS IVC PRN ×2 (17:01→21:49)
[2020-01-19 17:58] LABS: BUN/Creatinine Ratio 22 (6-26); Blood Urea Nitrogen 20 mg/dL (6-20); Calcium 9.8 mg/dL (8.6-10.3); Carbon Dioxide 19 mEq/L (23-29); Chloride 101 mEq/L (98-107); Glucose 204 mg/dL (70-105); Osmolality,Calculated 280 (280-300); Potassium 3.7 mEq/L (3.5-5.1); Sodium 131 mEq/L (136-145); eGFR For African Americans > 60 (> 60); eGFR For Non-African Americans > 60 (> 60)
[2020-01-19] MEDS: *HR* Heparin 5,000 UNIT/ML VIAL SQ SCH (19:06)
[2020-01-19] MEDS: Nicotine 21 MG PATCH.TD24 TD SCH (20:49)
[2020-01-19] MEDS: cefTRIAXone 1,000 MG in Water for inj. (sterile) 10 ML IVP SCH (20:55)
[2020-01-19 21:04] LABS: BUN/Creatinine Ratio 21 (6-26); Blood Urea Nitrogen 18 mg/dL (6-20); Calcium 9.3 mg/dL (8.6-10.3); Carbon Dioxide 22 mEq/L (23-29); Chloride 100 mEq/L (98-107); Glucose 88 mg/dL (70-105); Osmolality,Calculated 277 (280-300); Potassium 3.1 mEq/L (3.5-5.1); Sodium 133 mEq/L (136-145); eGFR For African Americans > 60 (> 60); eGFR For Non-African Americans > 60 (> 60)
[2020-01-19] MEDS ORDERED: Insulin DETEMIR 100 UNIT/ML X5UNITS SQ ONE (21:30)
[2020-01-20] MEDS: Pregabalin 75 MG CAPSULE PO SCH ×4 (00:30→20:46)
[2020-01-20] MEDS: *HR* Heparin 5,000 UNIT/ML VIAL SQ SCH ×2 (05:44→15:53)
[2020-01-20 07:04] LABS: VBG HCO3 21 mEq/L (21-27); VBG PCO2 47 mmHg (41-51); VBG PH 7.26 pH Units (7.32-7.42); VBG PO2 52 mmHg (25-50)
[2020-01-20 07:15] LABS: Magnesium 1.8 mg/dL (1.6-2.6); Phosphorous 2.8 mg/dL (2.7-4.5)
[2020-01-20 07:40] LABS: BUN/Creatinine Ratio 22 (6-26); Blood Urea Nitrogen 19 mg/dL (6-20); Calcium 8.4 mg/dL (8.6-10.3); Carbon Dioxide 18 mEq/L (23-29); Chloride 102 mEq/L (98-107); Glucose 343 mg/dL (70-105); Osmolality,Calculated 286 (280-300); Potassium 4.2 mEq/L (3.5-5.1); Sodium 130 mEq/L (136-145); eGFR For African Americans > 60 (> 60); eGFR For Non-African Americans > 60 (> 60)
[2020-01-20] MEDS: Insulin LISPRO 300 UNITS/3 ML VIAL SQ SCH ×3 (08:32→15:53)
[2020-01-20 09:27] LABS: Estimated Average Glucose 378 mg/dl
[2020-01-20] MEDS: Ondansetron 4 MG/2 ML VIAL IVP PRN ×2 (10:23→20:48)
[2020-01-20] MEDS: Ipratropium/Albuterol Neb 3 ML IH SCH ×3 (16:16→23:55)
[2020-01-20] MEDS ORDERED: INSULIN ASPART 30 UNIT SQ SCH (16:30)
[2020-01-20] MEDS: cefTRIAXone 1,000 MG in Water for inj. (sterile) 10 ML IVP SCH (18:37)
[2020-01-20] MEDS: Nicotine 21 MG PATCH.TD24 TD SCH (20:47)
[2020-01-20] MEDS ORDERED: Insulin DETEMIR 100 UNIT/ML X5UNITS SQ SCH (21:00)
[2020-01-20] MEDS ORDERED: Insulin LISPRO 300 UNITS/3 ML VIAL SQ SCH (21:00)
[2020-01-21] MEDS: Ipratropium/Albuterol Neb 3 ML IH SCH ×2 (03:39→07:39)
[2020-01-21] MEDS: *HR* Heparin 5,000 UNIT/ML VIAL SQ SCH (04:52)
[2020-01-21 05:43] LABS: BUN/Creatinine Ratio 23 (6-26); Blood Urea Nitrogen 21 mg/dL (6-20); Calcium 8.2 mg/dL (8.6-10.3); Carbon Dioxide 17 mEq/L (23-29); Chloride 104 mEq/L (98-107); Glucose 318 mg/dL (70-105); Osmolality,Calculated 285 (280-300); Potassium 4.1 mEq/L (3.5-5.1); Sodium 130 mEq/L (136-145); eGFR For African Americans > 60 (> 60); eGFR For Non-African Americans > 60 (> 60)
[2020-01-21 07:08] VITALS: BP 110/66
[2020-01-21] MEDS: Pregabalin 75 MG CAPSULE PO SCH (07:24)
[2020-01-21] MEDS: Insulin LISPRO 300 UNITS/3 ML VIAL SQ SCH (07:24)
[2020-01-21 20:01] LABS: Amphetamines NEGATIVE ng/mL (Cutoff 20); Barbiturates NEGATIVE ng/mL (Cutoff 50); Benzodiazepines NEGATIVE ng/mL (Cutoff 50); Buprenorphine NEGATIVE ng/mL (Cutoff 1); Cocaine NEGATIVE ng/mL (Cutoff 20); Methadone NEGATIVE ng/mL (Cutoff 25); Methamphetamines NEGATIVE ng/mL (Cutoff 20); Opiates NEGATIVE ng/mL (Cutoff 20); Phencyclidine NEGATIVE ng/mL (Cutoff 10)
== END 2020-01-21 11:06 | disposition home or self-care (01) ==
LOC: EMEROOARM 13:30 → 2NNU 13:30 → 2ANU 01-20 10:43
PROVIDERS: ADMIT Internal Medicine; ATTEND Internal Medicine

== ENCOUNTER 2020-02-14 15:16 | Observation (INO) ==
[2020-02-14] MEDS ORDERED: Ringers Solution, Lactated 1,000 ML IVC ONE (16:29)
[2020-02-14] MEDS ORDERED: Ondansetron 4 MG/2 ML VIAL IVP ONE ×2 (16:30→22:25)
[2020-02-14] MEDS ORDERED: *HR* FentaNYL (PF) 100 MCG/2 ML VIAL IVP ONE (17:14)
[2020-02-14] MEDS ORDERED: Isovue-370 500 ML BOTTLE IVP ONE (17:26)
[2020-02-14 17:28] LABS: VBG HCO3 17 mEq/L (21-27); VBG PCO2 34 mmHg (41-51); VBG PH 7.31 pH Units (7.32-7.42); VBG PO2 45 mmHg (25-50)
[2020-02-14 17:54] LABS: Basophils % 0.3 %; Eosinophils # 0.1 K/mcL (0.0-0.6); Eosinophils % 1.1 %; Hemoglobin 17.4 g/dL (11.5-15.4); Immature Granulocytes % 0.3 % (0-4); Lymphocytes # 2.9 K/mcL (0.6-4.6); Lymphocytes % 32.6 %; Mean Corpuscular HGB Conc 34.8 g/dL (31.6-35.5); Mean Corpuscular Hemoglobin 29.5 pg (28.0-33.3); Mean Corpuscular Volume 84.9 fL (83.0-100.0); Mean Platelet Volume 11.2 fL (9.4-12.4); Monocytes # 0.3 K/mcL (0.0-1.3); Monocytes % 3.8 %; Neutrophils # 5.5 K/mcL (1.6-8.9); Platelet Count 235 K/mcL (140-400); Red Blood Count 5.89 M/mcL (3.82-4.97); Red Cell Distribution Width 12.8 % (11.5-14.5); Segmented Neutrophils % 61.9 %; White Blood Count 8.9 K/mcL (4.3-11.1)
[2020-02-14 18:26] LABS: Alanine Aminotransferase 23 Units/L (7-52); Albumin 4.4 g/dL (3.5-5.7); Albumin/Globulin Ratio 1.2 (1.1-2.2); Alkaline Phosphatase 154 Units/L (34-104); Aspartate Amino Transferase 19 Units/L (13-39); BUN/Creatinine Ratio 17 (6-26); Bilirubin,Total 0.5 mg/dL (0.3-1.0); Blood Urea Nitrogen 19 mg/dL (6-20); Calcium 9.8 mg/dL (8.6-10.3); Carbon Dioxide 11 mEq/L (23-29); Chloride 93 mEq/L (98-107); Globulin 3.8 g/dL (2.4-3.5); Glucose 478 mg/dL (70-105); Lipase 54 Units/L (11-82); Magnesium 2.3 mg/dL (1.6-2.6); Osmolality,Calculated 287 (280-300); Phosphorous 4.4 mg/dL (2.7-4.5); Potassium 4.6 mEq/L (3.5-5.1); Sodium 127 mEq/L (136-145); Total Protein 8.2 g/dL (6.4-8.9); eGFR For African Americans > 60 (> 60); eGFR For Non-African Americans 53 (> 60)
[2020-02-14 18:35] LABS: Troponin I < 0.03 ng/mL (< 0.04)
[2020-02-14] MEDS ORDERED: Naloxone 0.4 MG/ML INJ IVP PRN ×2 (19:52→22:26)
[2020-02-14] MEDS: Insulin Human Regular 100 UNIT in 0.9 % Sodium Chloride 100 ML IVC SCH (20:49)
[2020-02-14] MEDS ORDERED: *HR* Dextrose 50 % in Water (Vial) 50 ML VIAL IVP PRN (20:51)
[2020-02-14] MEDS ORDERED: Insulin Regular, Human 100 UNIT/ML IV PRN (20:51)
[2020-02-14] MEDS ORDERED: Acetaminophen 325 MG TABLET PO PRN (21:45)
[2020-02-14] MEDS ORDERED: Ipratropium/Albuterol Neb 3 ML IH PRN (21:47)
[2020-02-14 22:11] LABS: BUN/Creatinine Ratio 18 (6-26); Blood Urea Nitrogen 17 mg/dL (6-20); Calcium 9.3 mg/dL (8.6-10.3); Carbon Dioxide 14 mEq/L (23-29); Chloride 97 mEq/L (98-107); Glucose 347 mg/dL (70-105); Osmolality,Calculated 283 (280-300); Potassium 3.6 mEq/L (3.5-5.1); Sodium 129 mEq/L (136-145); eGFR For African Americans > 60 (> 60); eGFR For Non-African Americans > 60 (> 60)
[2020-02-14] MEDS: 0.9 % Sodium Chloride w KCl 20 MEQ/1,000 ML MLS IVC SCH (23:16)
[2020-02-15] MEDS: D5% in 0.45% NACL w KCl 20 MEQ/1,000 ML MLS IVC PRN ×2 (00:14→03:21)
[2020-02-15] MEDS: Azithromycin 500 MG in 0.9 % Sodium Chloride 250 ML IVPB SCH ×2 (00:15→23:11)
[2020-02-15] MEDS: Insulin Human Regular 100 UNIT in 0.9 % Sodium Chloride 100 ML IVC SCH (00:32)
[2020-02-15 03:18] LABS: Basophils % 0.5 %; Eosinophils % 2.7 %; Hematocrit 46.6 % (35.3-44.9); Hemoglobin 16.1 g/dL (11.5-15.4); Immature Granulocytes % 0.2 % (0-4); Lymphocytes % 42.7 %; Mean Corpuscular HGB Conc 34.5 g/dL (31.6-35.5); Mean Corpuscular Hemoglobin 29.3 pg (28.0-33.3); Mean Corpuscular Volume 84.7 fL (83.0-100.0); Mean Platelet Volume 10.9 fL (9.4-12.4); Monocytes % 6.1 %; Platelet Count 240 K/mcL (140-400); Red Cell Distribution Width 12.8 % (11.5-14.5); Segmented Neutrophils % 47.8 %; White Blood Count 8.4 K/mcL (4.3-11.1)
[2020-02-15 03:19] LABS: Eosinophils # 0.2 K/mcL (0.0-0.6); Lymphocytes # 3.6 K/mcL (0.6-4.6); Monocytes # 0.5 K/mcL (0.0-1.3)
[2020-02-15 03:41] LABS: BUN/Creatinine Ratio 19 (6-26); Blood Urea Nitrogen 17 mg/dL (6-20); Calcium 8.8 mg/dL (8.6-10.3); Carbon Dioxide 19 mEq/L (23-29); Chloride 103 mEq/L (98-107); Glucose 154 mg/dL (70-105); Magnesium 1.9 mg/dL (1.6-2.6); Osmolality,Calculated 283 (280-300); Phosphorous 2.4 mg/dL (2.7-4.5); Potassium 3.8 mEq/L (3.5-5.1); Sodium 134 mEq/L (136-145); eGFR For African Americans > 60 (> 60); eGFR For Non-African Americans > 60 (> 60)
[2020-02-15] MEDS ORDERED: Dextrose Gel 15 GM/37.5 ML TUBE PO PRN ×2 (04:06)
[2020-02-15] MEDS ORDERED: *HR* Dextrose 50 % in Water (Vial) 50 ML VIAL IVP PRN (04:06)
[2020-02-15] MEDS ORDERED: Insulin DETEMIR 100 UNIT/ML X5UNITS SQ SCH (04:06)
[2020-02-15] MEDS ORDERED: D5% in Water 1,000 ML IVC PRN (04:06)
[2020-02-15] MEDS: Insulin DETEMIR 100 UNIT/ML X5UNITS SQ SCH ×2 (04:41→16:20)
[2020-02-15] MEDS: *HR* Heparin 5,000 UNIT/ML VIAL SQ SCH ×2 (04:41→17:27)
[2020-02-15 04:48] LABS: Bacteria,Urine Few per hpf (None-Few); Bilirubin,Urine Negative (Negative); Blood,Urine Negative (Negative); Clarity,Urine Clear (Clear); Color,Urine Colorless (Yellow); Glucose,Urine (UA) >=1000 mg/dL (Normal); Ketones,Urine 100 mg/dL (Negative); Leukocyte Esterase,Urine Negative (Negative); Mucus,Urine Few per lpf (None-Few); Nitrite,Urine Negative (Negative); Protein,Urine Negative (Neg-Trace); RBC,Urine 0-3 per hpf (0-3); Specific Gravity,Urine > 1.030 (1.010-1.025); Squamous Epithelial Cell,Urine Moderate per hpf (None-Few); Urobilinogen,Urine Normal (Normal); WBC,Urine 0-3 per hpf (0-3)
[2020-02-15] MEDS: predniSONE 20 MG TABLET PO SCH (07:50)
[2020-02-15] MEDS: Insulin LISPRO 300 UNITS/3 ML VIAL SQ SCH ×4 (07:50→20:28)
[2020-02-15] MEDS: Ondansetron 4 MG/2 ML VIAL IVP PRN (11:45)
[2020-02-15] MEDS: Pregabalin 75 MG CAPSULE PO SCH ×2 (14:37→20:27)
[2020-02-15] MEDS ORDERED: Pantoprazole 40 MG VIAL IVP ONE ×2 (16:43→17:30)
[2020-02-15] MEDS: 0.9 % Sodium Chloride w KCl 20 MEQ/1,000 ML MLS IVC SCH ×10 (22:38→23:04)
[2020-02-16] MEDS: Insulin DETEMIR 100 UNIT/ML X5UNITS SQ SCH ×3 (04:20→20:34)
[2020-02-16] MEDS: *HR* Heparin 5,000 UNIT/ML VIAL SQ SCH ×2 (05:39→16:20)
[2020-02-16 07:18] LABS: Basophils % 0.5 %; Eosinophils # 0.1 K/mcL (0.0-0.6); Eosinophils % 0.7 %; Hematocrit 43.1 % (35.3-44.9); Immature Granulocytes % 0.3 % (0-4); Lymphocytes # 2.8 K/mcL (0.6-4.6); Lymphocytes % 36.8 %; Mean Corpuscular HGB Conc 33.6 g/dL (31.6-35.5); Mean Corpuscular Hemoglobin 28.6 pg (28.0-33.3); Mean Platelet Volume 10.8 fL (9.4-12.4); Monocytes # 0.4 K/mcL (0.0-1.3); Monocytes % 4.7 %; Neutrophils # 4.4 K/mcL (1.6-8.9); Platelet Count 225 K/mcL (140-400); Red Blood Count 5.07 M/mcL (3.82-4.97); Red Cell Distribution Width 13.1 % (11.5-14.5); White Blood Count 7.7 K/mcL (4.3-11.1)
[2020-02-16 07:20] LABS: Hemoglobin 14.5 g/dL (11.5-15.4)
[2020-02-16 07:48] LABS: BUN/Creatinine Ratio 22 (6-26); Blood Urea Nitrogen 20 mg/dL (6-20); Calcium 9.1 mg/dL (8.6-10.3); Carbon Dioxide 15 mEq/L (23-29); Chloride 104 mEq/L (98-107); Glucose 300 mg/dL (70-105); Magnesium 2.1 mg/dL (1.6-2.6); Osmolality,Calculated 286 (280-300); Potassium 3.7 mEq/L (3.5-5.1); Sodium 131 mEq/L (136-145); eGFR For African Americans > 60 (> 60); eGFR For Non-African Americans > 60 (> 60)
[2020-02-16] MEDS: Pregabalin 75 MG CAPSULE PO SCH ×3 (08:03→20:33)
[2020-02-16] MEDS: Ondansetron 4 MG/2 ML VIAL IVP PRN (08:03)
[2020-02-16] MEDS: predniSONE 20 MG TABLET PO SCH (08:03)
[2020-02-16] MEDS: Insulin LISPRO 300 UNITS/3 ML VIAL SQ SCH ×5 (08:04→20:35)
[2020-02-16] MEDS: Nicotine 21 MG PATCH.TD24 TD SCH (11:34)
[2020-02-16] MEDS: Fluticasone Propionate Nasal 50 MCG/SPRAY BOTTLE NS SCH (11:35)
[2020-02-16 12:00] LABS: Estimated Average Glucose 395 mg/dl
[2020-02-16] MEDS: Azithromycin 500 MG in 0.9 % Sodium Chloride 250 ML IVPB SCH (22:41)
[2020-02-17] MEDS: *HR* Heparin 5,000 UNIT/ML VIAL SQ SCH (05:00)
[2020-02-17 07:10] LABS: Basophils % 0.5 %; Eosinophils % 0.6 %; Hematocrit 41.6 % (35.3-44.9); Hemoglobin 13.8 g/dL (11.5-15.4); Immature Granulocytes % 0.5 % (0-4); Lymphocytes # 2.9 K/mcL (0.6-4.6); Mean Corpuscular HGB Conc 33.2 g/dL (31.6-35.5); Mean Corpuscular Hemoglobin 28.6 pg (28.0-33.3); Mean Corpuscular Volume 86.1 fL (83.0-100.0); Mean Platelet Volume 10.7 fL (9.4-12.4); Monocytes # 0.3 K/mcL (0.0-1.3); Monocytes % 4.6 %; Neutrophils # 3.3 K/mcL (1.6-8.9); Platelet Count 207 K/mcL (140-400); Red Blood Count 4.83 M/mcL (3.82-4.97); Red Cell Distribution Width 13.1 % (11.5-14.5); Segmented Neutrophils % 49.8 %; White Blood Count 6.5 K/mcL (4.3-11.1)
[2020-02-17 07:18] LABS: BUN/Creatinine Ratio 25 (6-26); Blood Urea Nitrogen 21 mg/dL (6-20); Calcium 8.7 mg/dL (8.6-10.3); Carbon Dioxide 13 mEq/L (23-29); Chloride 107 mEq/L (98-107); Glucose 257 mg/dL (70-105); Magnesium 1.9 mg/dL (1.6-2.6); Osmolality,Calculated 284 (280-300); Potassium 3.8 mEq/L (3.5-5.1); Sodium 131 mEq/L (136-145); eGFR For African Americans > 60 (> 60); eGFR For Non-African Americans > 60 (> 60)
[2020-02-17] MEDS: Pregabalin 75 MG CAPSULE PO SCH (08:56)
[2020-02-17] MEDS: Fluticasone Propionate Nasal 50 MCG/SPRAY BOTTLE NS SCH (08:56)
[2020-02-17] MEDS: Insulin DETEMIR 100 UNIT/ML X5UNITS SQ SCH (08:56)
[2020-02-17] MEDS: Nicotine 21 MG PATCH.TD24 TD SCH (08:56)
[2020-02-17] MEDS: Insulin LISPRO 300 UNITS/3 ML VIAL SQ SCH ×4 (08:57→11:54)
[2020-02-17] MEDS ORDERED: predniSONE 20 MG TABLET PO SCH (09:00)
[2020-02-17 11:06] VITALS: BP 112/68
[2020-02-17] MEDS ORDERED: Azithromycin 250 MG TABLET PO SCH (21:00)
== END 2020-02-17 15:46 | disposition home or self-care (01) ==
LOC: 2NNU 15:16 → EMEROOARM 15:16 → SUATTDRO 21:15 → 2NNU 21:50 → 2ANU 02-15 21:59
PROVIDERS: ADMIT Student in an Organized Health Care Education/Training Program; ATTEND Internal Medicine

== ENCOUNTER 2020-04-15 14:23 | Observation (INO) ==
[2020-04-15] MEDS ORDERED: Ondansetron 4 MG/2 ML VIAL IVP ONE (15:08)
[2020-04-15] MEDS ORDERED: Ketorolac 15 MG/ML VIAL IVP ONE (15:10)
[2020-04-15] MEDS ORDERED: Isovue-370 500 ML BOTTLE IVP ONE (15:10)
[2020-04-15 15:14] LABS: Basophils % 0.4 %; Eosinophils # 0.2 K/mcL (0.0-0.6); Hematocrit 47.9 % (35.3-44.9); Hemoglobin 16.5 g/dL (11.5-15.4); Immature Granulocytes % 0.4 % (0-4); Lymphocytes # 2.8 K/mcL (0.6-4.6); Lymphocytes % 27.2 %; Mean Corpuscular HGB Conc 34.4 g/dL (31.6-35.5); Mean Corpuscular Hemoglobin 29.6 pg (28.0-33.3); Mean Corpuscular Volume 85.8 fL (83.0-100.0); Mean Platelet Volume 10.7 fL (9.4-12.4); Monocytes # 0.4 K/mcL (0.0-1.3); Monocytes % 3.7 %; Neutrophils # 6.7 K/mcL (1.6-8.9); Platelet Count 270 K/mcL (140-400); Red Blood Count 5.58 M/mcL (3.82-4.97); Red Cell Distribution Width 13.3 % (11.5-14.5); Segmented Neutrophils % 66.3 %; White Blood Count 10.2 K/mcL (4.3-11.1)
[2020-04-15] MEDS: 0.9 % Sodium Chloride 1,000 ML IVC SCH (15:16)
[2020-04-15 15:21] LABS: VBG HCO3 14 mEq/L (21-27); VBG PCO2 35 mmHg (41-51); VBG PH 7.21 pH Units (7.32-7.42); VBG PO2 51 mmHg (25-50)
[2020-04-15 15:26] LABS: Estimated Average Glucose 338 mg/dl; Hemoglobin A1C 13.4 %
[2020-04-15 15:48] LABS: BUN/Creatinine Ratio 17 (6-26); Blood Urea Nitrogen 19 mg/dL (6-20); Calcium 9.2 mg/dL (8.6-10.3); Carbon Dioxide 11 mEq/L (23-29); Chloride 95 mEq/L (98-107); Glucose 568 mg/dL (70-105); Magnesium 1.9 mg/dL (1.6-2.6); Osmolality,Calculated 288 (280-300); Phosphorous 3.6 mg/dL (2.7-4.5); Potassium 4.4 mEq/L (3.5-5.1); Sodium 125 mEq/L (136-145); eGFR For African Americans > 60 (> 60); eGFR For Non-African Americans 56 (> 60)
[2020-04-15 15:51] LABS: Bilirubin,Urine Negative (Negative); Blood,Urine Negative (Negative); Clarity,Urine Clear (Clear); Color,Urine Light-Yellow (Yellow); Glucose,Urine (UA) >=1000 mg/dL (Normal); Ketones,Urine 150 mg/dL (Negative); Leukocyte Esterase,Urine Negative (Negative); Mucus,Urine Few per lpf (None-Few); Nitrite,Urine Negative (Negative); Protein,Urine Trace mg/dL (Neg-Trace); RBC,Urine 0-3 per hpf (0-3); Specific Gravity,Urine > 1.030 (1.010-1.025); Squamous Epithelial Cell,Urine Few per hpf (None-Few); Urobilinogen,Urine Normal (Normal); WBC,Urine 0-3 per hpf (0-3)
[2020-04-15] MEDS: Insulin Human Regular 100 UNIT in 0.9 % Sodium Chloride 100 ML IVC SCH ×2 (15:57→23:37)
[2020-04-15] MEDS ORDERED: *HR* FentaNYL (PF) 100 MCG/2 ML VIAL IVP ONE (16:05)
[2020-04-15] MEDS ORDERED: Potassium Chloride 40 MEQ, Lidocaine 1% 2 ML in 0.9 % Sodium Chloride 500 ML IVPB ONE (16:30)
[2020-04-15] MEDS ORDERED: 0.9 % Sodium Chloride 1,000 ML IVC ONE (16:43)
[2020-04-15] MEDS ORDERED: Naloxone 0.4 MG/ML INJ IVP PRN ×2 (17:44→17:51)
[2020-04-15] MEDS ORDERED: *HR* Dextrose 50 % in Water (Vial) 50 ML VIAL IVP PRN (17:54)
[2020-04-15] MEDS ORDERED: Insulin Regular, Human 100 UNIT/ML IV PRN (17:54)
[2020-04-15] MEDS ORDERED: 0.45 % Sodium Chloride w/KCl 20 MEQ/1,000 ML MLS IVC SCH (18:00)
[2020-04-15] MEDS ORDERED: Ipratropium/Albuterol Neb 3 ML IH PRN (18:11)
[2020-04-15] MEDS ORDERED: Melatonin 3 MG TABLET PO PRN (18:16)
[2020-04-15] MEDS: Budesonide/Formoterol 160/4.5 1 PUFF INH IH SCH (20:12)
[2020-04-15] MEDS: 0.45 % Sodium Chloride w/KCl 20 MEQ/1,000 ML MLS IVC SCH (20:21)
[2020-04-15] MEDS: Pregabalin 75 MG CAPSULE PO SCH (21:21)
[2020-04-15] MEDS: Acetaminophen 325 MG TABLET PO PRN (21:22)
[2020-04-15] MEDS: Ondansetron 4 MG/2 ML VIAL IVP PRN (21:23)
[2020-04-15 23:07] LABS: BUN/Creatinine Ratio 18 (6-26); Blood Urea Nitrogen 17 mg/dL (6-20); Calcium 8.3 mg/dL (8.6-10.3); Carbon Dioxide 10 mEq/L (23-29); Chloride 106 mEq/L (98-107); Glucose 202 mg/dL (70-105); Osmolality,Calculated 275 (280-300); Potassium 4.4 mEq/L (3.5-5.1); Sodium 129 mEq/L (136-145); eGFR For African Americans > 60 (> 60); eGFR For Non-African Americans > 60 (> 60)
[2020-04-15] MEDS ORDERED: D5% in 0.45% NACL w KCl 20 MEQ/1,000 ML MLS IVC PRN (23:08)
[2020-04-15 23:43] LABS: VBG HCO3 15 mEq/L (21-27); VBG PCO2 28 mmHg (41-51); VBG PH 7.34 pH Units (7.32-7.42); VBG PO2 90 mmHg (25-50)
[2020-04-16 00:07] LABS: BUN/Creatinine Ratio 20 (6-26); Blood Urea Nitrogen 17 mg/dL (6-20); Calcium 8.6 mg/dL (8.6-10.3); Carbon Dioxide 13 mEq/L (23-29); Chloride 108 mEq/L (98-107); Glucose 115 mg/dL (70-105); Osmolality,Calculated 276 (280-300); Potassium 3.2 mEq/L (3.5-5.1); Sodium 132 mEq/L (136-145); eGFR For African Americans > 60 (> 60); eGFR For Non-African Americans > 60 (> 60)
[2020-04-16] MEDS ORDERED: Insulin DETEMIR 100 UNIT/ML X5UNITS SUBQ ONE (00:27)
[2020-04-16 01:32] LABS: Estimated Average Glucose 338 mg/dl; Hemoglobin A1C 13.4 %
[2020-04-16 02:53] LABS: Basophils % 0.3 %; Eosinophils # 0.2 K/mcL (0.0-0.6); Eosinophils % 2.6 %; Hematocrit 42.2 % (35.3-44.9); Immature Granulocytes % 0.3 % (0-4); Lymphocytes # 2.5 K/mcL (0.6-4.6); Lymphocytes % 27.3 %; Mean Corpuscular HGB Conc 34.6 g/dL (31.6-35.5); Mean Corpuscular Hemoglobin 29.2 pg (28.0-33.3); Mean Corpuscular Volume 84.4 fL (83.0-100.0); Mean Platelet Volume 10.2 fL (9.4-12.4); Monocytes # 0.6 K/mcL (0.0-1.3); Monocytes % 6.2 %; Neutrophils # 5.7 K/mcL (1.6-8.9); Platelet Count 239 K/mcL (140-400); Red Cell Distribution Width 13.5 % (11.5-14.5); Segmented Neutrophils % 63.3 %
[2020-04-16 02:55] LABS: Hemoglobin 14.6 g/dL (11.5-15.4)
[2020-04-16 03:14] LABS: Alanine Aminotransferase 17 Units/L (7-52); Albumin 3.8 g/dL (3.5-5.7); Albumin/Globulin Ratio 1.2 (1.1-2.2); Alkaline Phosphatase 122 Units/L (34-104); Aspartate Amino Transferase 17 Units/L (13-39); BUN/Creatinine Ratio 18 (6-26); Bilirubin,Total 0.4 mg/dL (0.3-1.0); Blood Urea Nitrogen 15 mg/dL (6-20); Calcium 8.3 mg/dL (8.6-10.3); Carbon Dioxide 14 mEq/L (23-29); Chloride 109 mEq/L (98-107); Chol/HDL Ratio 7.2 (0-4.9); Cholesterol 195 mg/dL (< 200); Globulin 3.1 g/dL (2.4-3.5); Glucose 123 mg/dL (70-105); HDL Cholesterol 27 mg/dL (40-59); Osmolality,Calculated 278 (280-300); Phosphorous 1.5 mg/dL (2.7-4.5); Potassium 3.5 mEq/L (3.5-5.1); Sodium 133 mEq/L (136-145); Total Protein 6.9 g/dL (6.4-8.9); Triglycerides 827 mg/dL (< 150); eGFR For African Americans > 60 (> 60); eGFR For Non-African Americans > 60 (> 60)
[2020-04-16] MEDS: *HR* Enoxaparin 40 MG/0.4 ML SYRINGE SQ SCH (05:33)
[2020-04-16] MEDS: Furosemide 20 MG TABLET PO SCH (08:31)
[2020-04-16] MEDS: Pregabalin 75 MG CAPSULE PO SCH ×3 (08:31→20:23)
[2020-04-16] MEDS: Nicotine 21 MG PATCH.TD24 TD SCH (08:32)
[2020-04-16] MEDS: 0.45 % Sodium Chloride w/KCl 20 MEQ/1,000 ML MLS IVC SCH (08:35)
[2020-04-16] MEDS: Calcium Gluconate 1gm/50mL 1 GM/50 ML BAG IVPB SCH ×2 (08:36→09:48)
[2020-04-16] MEDS: Insulin LISPRO 300 UNITS/3 ML VIAL SUBQ SCH ×6 (08:41→17:22)
[2020-04-16] MEDS: Fluticasone Propionate Nasal 50 MCG/SPRAY BOTTLE NS SCH (08:52)
[2020-04-16] MEDS: Insulin DETEMIR 100 UNIT/ML X5UNITS SUBQ SCH ×2 (08:54→20:24)
[2020-04-16] MEDS: Budesonide/Formoterol 160/4.5 1 PUFF INH IH SCH ×2 (11:24→20:18)
[2020-04-16] MEDS ORDERED: Insulin LISPRO 300 UNITS/3 ML VIAL SUBQ ONE (13:06)
[2020-04-16] MEDS: Acetaminophen 325 MG TABLET PO PRN ×2 (17:20→22:53)
[2020-04-16] MEDS: Ondansetron 4 MG/2 ML VIAL IVP PRN (17:21)
[2020-04-16] MEDS ORDERED: Insulin LISPRO 300 UNITS/3 ML VIAL SUBQ SCH (21:00)
[2020-04-16] MEDS ORDERED: *HR* OxyCODONE Immed Rel 5 MG TABLET PO ONE (23:37)
[2020-04-17 00:43] LABS: Hematocrit 40.1 % (35.3-44.9); Mean Corpuscular HGB Conc 34.9 g/dL (31.6-35.5); Mean Corpuscular Hemoglobin 30.2 pg (28.0-33.3); Mean Corpuscular Volume 86.6 fL (83.0-100.0); Mean Platelet Volume 10.4 fL (9.4-12.4); Platelet Count 236 K/mcL (140-400); Red Blood Count 4.63 M/mcL (3.82-4.97); Red Cell Distribution Width 13.5 % (11.5-14.5)
[2020-04-17 01:47] LABS: BUN/Creatinine Ratio 19 (6-26); Blood Urea Nitrogen 19 mg/dL (6-20); Calcium 8.8 mg/dL (8.6-10.3); Carbon Dioxide 13 mEq/L (23-29); Chloride 105 mEq/L (98-107); Glucose 344 mg/dL (70-105); Osmolality,Calculated 280 (280-300); Phosphorous 2.3 mg/dL (2.7-4.5); Potassium 4.1 mEq/L (3.5-5.1); Sodium 127 mEq/L (136-145); eGFR For African Americans > 60 (> 60); eGFR For Non-African Americans > 60 (> 60)
[2020-04-17 01:48] LABS: Alanine Aminotransferase 21 Units/L (7-52); Albumin 3.6 g/dL (3.5-5.7); Albumin/Globulin Ratio 1.2 (1.1-2.2); Alkaline Phosphatase 122 Units/L (34-104); Aspartate Amino Transferase 16 Units/L (13-39); BUN/Creatinine Ratio 17 (6-26); Bilirubin,Total 0.2 mg/dL (0.3-1.0); Blood Urea Nitrogen 18 mg/dL (6-20); Calcium 8.7 mg/dL (8.6-10.3); Carbon Dioxide 13 mEq/L (23-29); Chloride 105 mEq/L (98-107); Globulin 2.9 g/dL (2.4-3.5); Glucose 347 mg/dL (70-105); Lipase 55 Units/L (11-82); Osmolality,Calculated 282 (280-300); Potassium 4.1 mEq/L (3.5-5.1); Sodium 128 mEq/L (136-145); Total Protein 6.5 g/dL (6.4-8.9); eGFR For African Americans > 60 (> 60); eGFR For Non-African Americans 56 (> 60)
[2020-04-17] MEDS: *HR* Enoxaparin 40 MG/0.4 ML SYRINGE SQ SCH (06:02)
[2020-04-17] MEDS: Budesonide/Formoterol 160/4.5 1 PUFF INH IH SCH (07:53)
[2020-04-17] MEDS: Pregabalin 75 MG CAPSULE PO SCH ×2 (08:12→14:37)
[2020-04-17] MEDS: Insulin LISPRO 300 UNITS/3 ML VIAL SUBQ SCH ×4 (08:13→11:59)
[2020-04-17] MEDS: Furosemide 20 MG TABLET PO SCH (08:13)
[2020-04-17] MEDS: Ondansetron 4 MG/2 ML VIAL IVP PRN (08:13)
[2020-04-17] MEDS: Nicotine 21 MG PATCH.TD24 TD SCH (08:13)
[2020-04-17] MEDS: Fluticasone Propionate Nasal 50 MCG/SPRAY BOTTLE NS SCH (08:15)
[2020-04-17] MEDS ORDERED: Insulin DETEMIR 100 UNIT/ML X5UNITS SUBQ SCH (09:00)
[2020-04-17] MEDS: 0.9 % Sodium Chloride 1,000 ML IVC SCH (09:51)
[2020-04-17 11:21] VITALS: BP 115/74
[2020-04-19 11:08] LABS: Amphetamines NEGATIVE ng/mL (Cutoff 20); Barbiturates NEGATIVE ng/mL (Cutoff 50); Benzodiazepines NEGATIVE ng/mL (Cutoff 50); Buprenorphine NEGATIVE ng/mL (Cutoff 1); Cocaine NEGATIVE ng/mL (Cutoff 20); Methadone NEGATIVE ng/mL (Cutoff 25); Methamphetamines NEGATIVE ng/mL (Cutoff 20); Opiates NEGATIVE ng/mL (Cutoff 20); Phencyclidine NEGATIVE ng/mL (Cutoff 10)
== END 2020-04-17 14:51 | disposition home or self-care (01) ==
LOC: 2NNU 14:23 → EMEROOARM 14:23 → SUATTDRO 17:47 → 2NNU 20:04 → 2ANU 04-16 13:00
PROVIDERS: ADMIT Internal Medicine; ATTEND Internal Medicine

== ENCOUNTER 2020-10-29 15:26 | Observation (INO) ==
[2020-10-29] MEDS ORDERED: 0.9 % Sodium Chloride 1,000 ML IVC ONE (16:53)
[2020-10-29 17:19] LABS: Amorphous Sediment,Urine Few per hpf (None-Few); Bilirubin,Urine Negative (Negative); Blood,Urine Negative (Negative); Clarity,Urine Clear (Clear); Color,Urine Colorless (Yellow); Glucose,Urine (UA) >=1000 mg/dL (Normal); Ketones,Urine 20 mg/dL (Negative); Leukocyte Esterase,Urine Negative (Negative); Nitrite,Urine Negative (Negative); Protein,Urine Negative (Neg-Trace); RBC,Urine 0-3 per hpf (0-3); Specific Gravity,Urine > 1.030 (1.010-1.025); Squamous Epithelial Cell,Urine Few per hpf (None-Few); Urobilinogen,Urine Normal (Normal); WBC,Urine 0-3 per hpf (0-3)
[2020-10-29 17:31] LABS: Basophils # 0.1 K/mcL (0.0-0.2); Basophils % 0.4 %; Eosinophils # 0.2 K/mcL (0.0-0.6); Hematocrit 47.6 % (35.3-44.9); Hemoglobin 16.7 g/dL (11.5-15.4); Immature Granulocytes % 0.3 % (0-4); Lymphocytes # 3.4 K/mcL (0.6-4.6); Lymphocytes % 28.7 %; Mean Corpuscular HGB Conc 35.1 g/dL (31.6-35.5); Mean Corpuscular Hemoglobin 29.9 pg (28.0-33.3); Mean Corpuscular Volume 85.2 fL (83.0-100.0); Mean Platelet Volume 11.2 fL (9.4-12.4); Monocytes # 0.6 K/mcL (0.0-1.3); Monocytes % 4.9 %; Neutrophils # 7.5 K/mcL (1.6-8.9); Platelet Count 250 K/mcL (140-400); Red Blood Count 5.59 M/mcL (3.82-4.97); Red Cell Distribution Width 13.3 % (11.5-14.5); Segmented Neutrophils % 63.7 %; White Blood Count 11.7 K/mcL (4.3-11.1)
[2020-10-29 17:42] LABS: VBG HCO3 20 mEq/L (21-27); VBG PCO2 37 mmHg (41-51); VBG PH 7.34 pH Units (7.32-7.42); VBG PO2 47 mmHg (25-50)
[2020-10-29] MEDS ORDERED: Ondansetron 4 MG/2 ML VIAL IVP ONE (17:52)
[2020-10-29] MEDS ORDERED: Ketorolac 15 MG/ML VIAL IVP ONE (17:53)
[2020-10-29 17:58] LABS: BUN/Creatinine Ratio 16 (6-26); Blood Urea Nitrogen 19 mg/dL (6-20); Calcium 9.7 mg/dL (8.6-10.3); Carbon Dioxide 16 mEq/L (23-29); Chloride 93 mEq/L (98-107); Glucose 560 mg/dL (70-105); Osmolality,Calculated 286 (280-300); Potassium 4.1 mEq/L (3.5-5.1); Sodium 124 mEq/L (136-145); Troponin I < 0.03 ng/mL (< 0.04); eGFR For African Americans > 60 (> 60); eGFR For Non-African Americans 51 (> 60)
[2020-10-29 18:46] LABS: Influenza A PCR Negative (Negative); Influenza B PCR Negative (Negative); Resp. Syncytial Virus PCR Negative (Negative)
[2020-10-29 18:52] LABS: SARS-CoV-2 by PCR (In House) Negative (Negative)
[2020-10-29] MEDS ORDERED: Ipratropium/Albuterol Neb 3 ML IH ONE (19:42)
[2020-10-29] MEDS ORDERED: Isovue-370 500 ML BOTTLE IVP ONE (19:46)
[2020-10-29] MEDS ORDERED: Morphine Sulfate 2 MG/ML SYRINGE IVP ONE (19:47)
[2020-10-29] MEDS ORDERED: Acetaminophen 325 MG TABLET PO PRN (21:24)
[2020-10-29] MEDS ORDERED: Naloxone 0.4 MG/ML INJ IVP PRN (21:24)
[2020-10-29] MEDS ORDERED: Ondansetron 4 MG/2 ML VIAL IVP PRN (21:24)
[2020-10-29] MEDS ORDERED: Melatonin 3 MG TABLET PO PRN (21:24)
[2020-10-29] MEDS ORDERED: Insulin Regular, Human 100 UNIT/ML IV PRN ×2 (21:26)
[2020-10-29] MEDS ORDERED: D5% in 0.45% NACL 1,000 ML IVC PRN (21:26)
[2020-10-29] MEDS ORDERED: 0.9 % Sodium Chloride w KCl 20 MEQ/1,000 ML MLS IVC SCH (21:30)
[2020-10-29] MEDS ORDERED: 0.45 % Sodium Chloride w/KCl 20 MEQ/1,000 ML MLS IVC SCH ×2 (21:30)
[2020-10-29] MEDS ORDERED: 0.9 % Sodium Chloride 1,000 ML IVC SCH ×2 (21:30)
[2020-10-29] MEDS: 0.9 % Sodium Chloride w KCl 20 MEQ/1,000 ML MLS IVC SCH (21:51)
[2020-10-29 22:29] LABS: BUN/Creatinine Ratio 19 (6-26); Blood Urea Nitrogen 20 mg/dL (6-20); Calcium 9.4 mg/dL (8.6-10.3); Carbon Dioxide 17 mEq/L (23-29); Chloride 100 mEq/L (98-107); Glucose 317 mg/dL (70-105); Osmolality,Calculated 283 (280-300); Potassium 3.4 mEq/L (3.5-5.1); Sodium 129 mEq/L (136-145); eGFR For African Americans > 60 (> 60); eGFR For Non-African Americans 57 (> 60)
[2020-10-29] MEDS: Nicotine 21 MG PATCH.TD24 TD SCH (23:12)
[2020-10-29] MEDS ORDERED: Albuterol 2.5 MG/3 ML NEBULIZER IH PRN (23:13)
[2020-10-29] MEDS: Ipratropium/Albuterol Neb 3 ML IH SCH (23:51)
[2020-10-29] MEDS: D5% in 0.45% NACL w KCl 20 MEQ/1,000 ML MLS IVC PRN (23:56)
[2020-10-30 02:49] LABS: Basophils # 0.1 K/mcL (0.0-0.2); Basophils % 0.7 %; Eosinophils # 0.3 K/mcL (0.0-0.6); Eosinophils % 3.1 %; Hematocrit 42.3 % (35.3-44.9); Hemoglobin 15.2 g/dL (11.5-15.4); Immature Granulocytes % 0.5 % (0-4); Lymphocytes # 3.2 K/mcL (0.6-4.6); Lymphocytes % 31.3 %; Mean Corpuscular HGB Conc 35.9 g/dL (31.6-35.5); Mean Corpuscular Hemoglobin 30.5 pg (28.0-33.3); Mean Corpuscular Volume 84.9 fL (83.0-100.0); Mean Platelet Volume 10.8 fL (9.4-12.4); Monocytes # 0.7 K/mcL (0.0-1.3); Monocytes % 6.5 %; Neutrophils # 5.9 K/mcL (1.6-8.9); Platelet Count 260 K/mcL (140-400); Red Blood Count 4.98 M/mcL (3.82-4.97); Red Cell Distribution Width 13.2 % (11.5-14.5); Segmented Neutrophils % 57.9 %; White Blood Count 10.2 K/mcL (4.3-11.1)
[2020-10-30 03:01] LABS: VBG HCO3 20 mEq/L (21-27); VBG PCO2 41 mmHg (41-51); VBG PO2 146 mmHg (25-50)
[2020-10-30] MEDS: Azithromycin 500 MG in 0.9 % Sodium Chloride 250 ML IVPB SCH (03:06)
[2020-10-30 03:11] LABS: BUN/Creatinine Ratio 22 (6-26); Blood Urea Nitrogen 19 mg/dL (6-20); Calcium 8.9 mg/dL (8.6-10.3); Carbon Dioxide 18 mEq/L (23-29); Chloride 105 mEq/L (98-107); Glucose 114 mg/dL (70-105); Osmolality,Calculated 279 (280-300); Potassium 3.4 mEq/L (3.5-5.1); Sodium 133 mEq/L (136-145); eGFR For African Americans > 60 (> 60); eGFR For Non-African Americans > 60 (> 60)
[2020-10-30] MEDS: D5% in 0.45% NACL w KCl 20 MEQ/1,000 ML MLS IVC PRN (03:34)
[2020-10-30] MEDS: *HR* Dextrose 50 % in Water (Vial) 50 ML VIAL IVP PRN ×3 (04:03→09:37)
[2020-10-30] MEDS: Ipratropium/Albuterol Neb 3 ML IH SCH ×4 (04:03→22:23)
[2020-10-30] MEDS: *HR* Heparin 5,000 UNIT/ML VIAL SQ SCH ×2 (04:46→17:13)
[2020-10-30 06:08] LABS: VBG HCO3 16 mEq/L (21-27); VBG PCO2 25 mmHg (41-51); VBG PH 7.41 pH Units (7.32-7.42); VBG PO2 202 mmHg (25-50)
[2020-10-30 06:29] LABS: BUN/Creatinine Ratio 20 (6-26); Blood Urea Nitrogen 16 mg/dL (6-20); Calcium 8.1 mg/dL (8.6-10.3); Carbon Dioxide 17 mEq/L (23-29); Chloride 105 mEq/L (98-107); Glucose 218 mg/dL (70-105); Magnesium 1.7 mg/dL (1.6-2.6); Osmolality,Calculated 280 (280-300); Phosphorous 2.9 mg/dL (2.7-4.5); Potassium 3.9 mEq/L (3.5-5.1); Sodium 131 mEq/L (136-145); eGFR For African Americans > 60 (> 60); eGFR For Non-African Americans > 60 (> 60)
[2020-10-30] MEDS: 0.9 % Sodium Chloride w KCl 20 MEQ/1,000 ML MLS IVC SCH (07:54)
[2020-10-30 10:25] LABS: VBG HCO3 21 mEq/L (21-27); VBG PCO2 43 mmHg (41-51); VBG PH 7.31 pH Units (7.32-7.42); VBG PO2 192 mmHg (25-50)
[2020-10-30 10:36] LABS: BUN/Creatinine Ratio 19 (6-26); Blood Urea Nitrogen 14 mg/dL (6-20); Carbon Dioxide 19 mEq/L (23-29); Chloride 108 mEq/L (98-107); Glucose 87 mg/dL (70-105); Osmolality,Calculated 276 (280-300); Potassium 3.7 mEq/L (3.5-5.1); Sodium 133 mEq/L (136-145); eGFR For African Americans > 60 (> 60); eGFR For Non-African Americans > 60 (> 60)
[2020-10-30] MEDS ORDERED: Insulin DETEMIR 100 UNIT/ML X5UNITS SUBQ ONE (11:10)
[2020-10-30 11:28] LABS: Calcium 8.3 mg/dL (8.6-10.3)
[2020-10-30] MEDS: predniSONE 20 MG TABLET PO SCH (11:33)
[2020-10-30] MEDS: Nicotine 21 MG PATCH.TD24 TD SCH (11:33)
[2020-10-30] MEDS: Insulin LISPRO 300 UNITS/3 ML VIAL SUBQ SCH ×2 (12:20→17:12)
[2020-10-30] MEDS ORDERED: Melatonin 3 MG TABLET PO PRN (17:17)
[2020-10-30] MEDS ORDERED: diazePAM 5 MG TABLET PO PRN (17:17)
[2020-10-30] MEDS ORDERED: Benzonatate 100 MG CAPSULE PO PRN (17:17)
[2020-10-30] MEDS ORDERED: Insulin LISPRO 300 UNITS/3 ML VIAL SUBQ SCH ×4 (17:19→21:00)
[2020-10-30] MEDS: Pregabalin 50 MG CAPSULE PO SCH (20:09)
[2020-10-30] MEDS: BuPROPion SR (12 HR) 100 MG TABLET PO SCH (20:09)
[2020-10-30] MEDS ORDERED: Insulin DETEMIR 100 UNIT/ML X5UNITS SUBQ SCH (21:00)
[2020-10-31 02:09] LABS: Hematocrit 40.1 % (35.3-44.9); Hemoglobin 13.9 g/dL (11.5-15.4); Mean Corpuscular HGB Conc 34.7 g/dL (31.6-35.5); Mean Corpuscular Volume 86.4 fL (83.0-100.0); Mean Platelet Volume 10.7 fL (9.4-12.4); Platelet Count 237 K/mcL (140-400); Red Blood Count 4.64 M/mcL (3.82-4.97); Red Cell Distribution Width 13.3 % (11.5-14.5); White Blood Count 9.1 K/mcL (4.3-11.1)
[2020-10-31] MEDS: Azithromycin 500 MG in 0.9 % Sodium Chloride 250 ML IVPB SCH (02:12)
[2020-10-31 02:32] LABS: BUN/Creatinine Ratio 18 (6-26); Blood Urea Nitrogen 15 mg/dL (6-20); Calcium 9.4 mg/dL (8.6-10.3); Carbon Dioxide 17 mEq/L (23-29); Chloride 104 mEq/L (98-107); Glucose 286 mg/dL (70-105); Osmolality,Calculated 279 (280-300); Potassium 4.9 mEq/L (3.5-5.1); Sodium 129 mEq/L (136-145); eGFR For African Americans > 60 (> 60); eGFR For Non-African Americans > 60 (> 60)
[2020-10-31] MEDS: Ipratropium/Albuterol Neb 3 ML IH SCH ×2 (04:05→11:25)
[2020-10-31 04:06] VITALS: O2SAT 95
[2020-10-31] MEDS: *HR* Heparin 5,000 UNIT/ML VIAL SQ SCH (05:32)
[2020-10-31 06:35] VITALS: BP 106/65; PULSE 72; TEMP 97.8
[2020-10-31] MEDS ORDERED: Insulin LISPRO 300 UNITS/3 ML VIAL SUBQ SCH (08:00)
[2020-10-31] MEDS: Nicotine 21 MG PATCH.TD24 TD SCH (08:09)
[2020-10-31] MEDS: BuPROPion SR (12 HR) 100 MG TABLET PO SCH (08:10)
[2020-10-31] MEDS: predniSONE 20 MG TABLET PO SCH (08:10)
[2020-10-31] MEDS: Pregabalin 50 MG CAPSULE PO SCH (08:10)
[2020-10-31] MEDS ORDERED: Insulin DETEMIR 100 UNIT/ML X5UNITS SUBQ SCH (09:00)
[2020-10-31] MEDS ORDERED: Fluticasone Propionate Nasal 50 MCG/SPRAY BOTTLE NS SCH (09:00)
== END 2020-10-31 13:12 | disposition home or self-care (01) ==
LOC: 2NNU 15:26 → EMEROOARM 15:26 → 2NNU 21:18 → 3BNU 10-30 15:16
PROVIDERS: ADMIT Internal Medicine; ATTEND Internal Medicine

== ENCOUNTER 2021-06-18 14:52 | Observation (INO) ==
[2021-06-18] MEDS ORDERED: 0.9 % Sodium Chloride 1,000 ML IV ONE (16:40)
[2021-06-18 17:19] LABS: VBG HCO3 29 mEq/L (21-27); VBG PCO2 47 mmHg (41-51); VBG PO2 77 mmHg (25-50)
[2021-06-18 17:33] LABS: Influenza A PCR Negative (Negative); Influenza B PCR Negative (Negative); Resp. Syncytial Virus PCR Negative (Negative)
[2021-06-18 17:38] LABS: SARS-CoV-2 by PCR (In House) Negative (Negative)
[2021-06-18] MEDS ORDERED: Isovue-370 500 ML BOTTLE IVP ONE (17:43)
[2021-06-18 17:48] LABS: Basophils # 0.1 K/mcL (0.0-0.2); Basophils % 0.5 %; Eosinophils # 0.1 K/mcL (0.0-0.6); Eosinophils % 0.9 %; Hematocrit 47.1 % (35.3-44.9); Hemoglobin 16.8 g/dL (11.5-15.4); Immature Granulocytes % 0.4 % (0-4); Lymphocytes # 3.1 K/mcL (0.6-4.6); Lymphocytes % 30.7 %; Mean Corpuscular HGB Conc 35.7 g/dL (31.6-35.5); Mean Corpuscular Volume 84.1 fL (83.0-100.0); Mean Platelet Volume 9.5 fL (9.4-12.4); Monocytes # 0.4 K/mcL (0.0-1.3); Monocytes % 4.1 %; Neutrophils # 6.5 K/mcL (1.6-8.9); Platelet Count 374 K/mcL (140-400); Red Cell Distribution Width 12.6 % (11.5-14.5); Segmented Neutrophils % 63.4 %; White Blood Count 10.2 K/mcL (4.3-11.1)
[2021-06-18 18:06] LABS: Alanine Aminotransferase 17 Units/L (7-52); Albumin 4.4 g/dL (3.5-5.7); Albumin/Globulin Ratio 1.2 (1.1-2.2); Alkaline Phosphatase 145 Units/L (34-104); Amylase 12 Units/L (29-103); Aspartate Amino Transferase 9 Units/L (13-39); BUN/Creatinine Ratio 14 (6-26); Bilirubin,Total 0.7 mg/dL (0.3-1.0); Blood Urea Nitrogen 14 mg/dL (6-20); Calcium 9.7 mg/dL (8.6-10.3); Carbon Dioxide 20 mEq/L (23-29); Chloride 97 mEq/L (98-107); Globulin 3.6 g/dL (2.4-3.5); Glucose 452 mg/dL (70-105); Lipase 13 Units/L (11-82); Osmolality,Calculated 286 (280-300); Sodium 128 mEq/L (136-145); eGFR For African Americans > 60 (> 60); eGFR For Non-African Americans > 60 (> 60)
[2021-06-18 18:16] LABS: Bacteria,Urine Few per hpf (None-Few); Bilirubin,Urine Negative (Negative); Blood,Urine Negative (Negative); Budding Yeast,Urine Few per hpf (None Seen); Clarity,Urine Clear (Clear); Color,Urine Light-Yellow (Yellow); Glucose,Urine (UA) >=1000 mg/dL (Normal); Ketones,Urine 40 mg/dL (Negative); Leukocyte Esterase,Urine Negative (Negative); Mucus,Urine Few per lpf (None-Few); Nitrite,Urine Negative (Negative); PH,Urine 6.5 pH Units (5.0-8.0); Protein,Urine Trace mg/dL (Neg-Trace); RBC,Urine 0-3 per hpf (0-3); Specific Gravity,Urine > 1.030 (1.010-1.025); Squamous Epithelial Cell,Urine Few per hpf (None-Few); Urobilinogen,Urine Normal (Normal); WBC,Urine 0-3 per hpf (0-3); Waxy Casts,Urine Few per lpf (None Seen)
[2021-06-18 19:12] LABS: VBG HCO3 23 mEq/L (21-27); VBG PCO2 49 mmHg (41-51); VBG PH 7.29 pH Units (7.32-7.42); VBG PO2 40 mmHg (25-50)
[2021-06-18] MEDS ORDERED: Melatonin 3 MG TABLET PO PRN (20:00)
[2021-06-18] MEDS ORDERED: Naloxone 0.4 MG/ML INJ IVP PRN (20:00)
[2021-06-18] MEDS ORDERED: Ondansetron 4 MG/2 ML VIAL IVP PRN (20:02)
[2021-06-18] MEDS ORDERED: *HR* Dextrose 50 % in Water (Syg) 50 ML SYRINGE IVP PRN (20:03)
[2021-06-18] MEDS ORDERED: D5% in Water 1,000 ML IVC PRN (20:03)
[2021-06-18] MEDS ORDERED: Dextrose 4 GM Chewable Tablets PO PRN ×2 (20:03)
[2021-06-18] MEDS ORDERED: 0.9 % Sodium Chloride 1,000 ML IVC SCH (20:15)
[2021-06-18] MEDS ORDERED: Insulin DETEMIR 100 UNIT/ML X5UNITS SUBQ SCH (21:00)
[2021-06-18] MEDS ORDERED: Insulin LISPRO 300 UNITS/3 ML VIAL SUBQ SCH (21:00)
[2021-06-18] MEDS ORDERED: diazePAM 5 MG TABLET PO PRN (22:06)
[2021-06-18] MEDS: Pregabalin 75 MG CAPSULE PO SCH (22:29)
[2021-06-18] MEDS ORDERED: Nicotine 7 MG PATCH.TD24 TD SCH (22:30)
[2021-06-19] MEDS ORDERED: Insulin LISPRO 300 UNITS/3 ML VIAL SUBQ ONE (00:05)
[2021-06-19] MEDS ORDERED: *HR* Heparin 5,000 UNIT/ML VIAL SQ SCH (06:00)
[2021-06-19 06:19] LABS: Hematocrit 41.8 % (35.3-44.9); Mean Corpuscular HGB Conc 35.4 g/dL (31.6-35.5); Mean Corpuscular Hemoglobin 29.5 pg (28.0-33.3); Mean Corpuscular Volume 83.4 fL (83.0-100.0); Mean Platelet Volume 9.5 fL (9.4-12.4); Platelet Count 304 K/mcL (140-400); Red Blood Count 5.01 M/mcL (3.82-4.97); Red Cell Distribution Width 12.6 % (11.5-14.5); White Blood Count 8.6 K/mcL (4.3-11.1)
[2021-06-19 06:23] LABS: Hemoglobin 14.8 g/dL (11.5-15.4)
[2021-06-19 06:52] LABS: BUN/Creatinine Ratio 16 (6-26); Blood Urea Nitrogen 13 mg/dL (6-20); Calcium 9.2 mg/dL (8.6-10.3); Carbon Dioxide 19 mEq/L (23-29); Chloride 103 mEq/L (98-107); Glucose 293 mg/dL (70-105); Magnesium 1.8 mg/dL (1.6-2.6); Osmolality,Calculated 287 (280-300); Phosphorous 3.3 mg/dL (2.7-4.5); Potassium 3.5 mEq/L (3.5-5.1); Sodium 133 mEq/L (136-145); eGFR For African Americans > 60 (> 60); eGFR For Non-African Americans > 60 (> 60)
[2021-06-19 07:16] LABS: Estimated Average Glucose 249 mg/dl; Hemoglobin A1C 10.3 %
[2021-06-19] MEDS: Pregabalin 75 MG CAPSULE PO SCH ×2 (08:49→13:56)
[2021-06-19] MEDS: Insulin LISPRO 300 UNITS/3 ML VIAL SUBQ SCH ×2 (08:49→12:09)
[2021-06-19] MEDS ORDERED: Insulin DETEMIR 100 UNIT/ML X5UNITS SUBQ SCH (09:00)
[2021-06-19] MEDS ORDERED: ARIPiprazole 10 MG TABLET PO SCH (09:00)
[2021-06-19] MEDS ORDERED: Ondansetron ODT 4 MG TAB.RAPDIS SL ONE (10:18)
[2021-06-19] MEDS ORDERED: Insulin DETEMIR 100 UNIT/ML X5UNITS SUBQ ONE (10:28)
[2021-06-19 13:41] VITALS: BP 120/62; PULSE 65; TEMP 97.9; O2SAT 99
== END 2021-06-19 13:59 | disposition home or self-care (01) ==
LOC: EMEROOARM 14:52 → 2NENU 14:52 → SUATTDRO 19:56 → 3ANU 21:32
PROVIDERS: ADMIT Student in an Organized Health Care Education/Training Program; ATTEND Student in an Organized Health Care Education/Training Program